=== PATIENT | male | born 1980 | race Caucasian/White ===

== ENCOUNTER 2021-05-12 10:18 | Emergency (ER) | payer BC, SELFPAY ==
[2021-05-12 10:19] VITALS: BP 159/120; PULSE 95; RESP 18; TEMP 36.6; O2SAT 99; BMI 36.3
[2021-05-12 10:21] VITALS: BP 159/120; PULSE 95; RESP 18; TEMP 36.6; O2SAT 99
--- NOTE | 2021-05-12 10:59 | CT_ITS ---
STUDY: CT SOFT TISSUE NECK WITH CONTRAST REASON FOR EXAM: Male, 40 years old. right lower jaw dental infection RADIATION DOSAGE (If Supplied By Facility): CTDIvol = ( 19.48 ) mGy, DLP = ( 730.13 ) mGycm TECHNIQUE: The patient was scanned in a multi-detector CT scanner. High resolution transaxial imaging was performed following intravenous administration of IV 75mL Isovue-370. Sagittal and coronal images were reconstructed. Individualized dose optimization techniques were used for this CT. COMPARISON: None. FINDINGS: Normal bilateral parotid glands. 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 Normal bilateral parapharyngeal spaces. Normal bilateral carotid spaces. There is right lower periodontal soft tissue swelling and edema mild edema and inflammation of the overlying subcutaneous tissue. There is no focal collection or discrete abscess. There is no definite osteomyelitis, but suspected involved tooth is the right lower second bicuspid and/or first molar. Normal visualized nasopharynx. Normal retropharyngeal space. Normal perivertebral space. Normal visualized bilateral faucial tonsils. The visualized tongue, tongue base and oropharynx are normal. There is mild right level 1A adenopathy measuring up to 1.2 cm. Mild right submandibular adenopathy up to 1 cm. There is no demonstrated solid or cystic mass lesion. There is no abnormal contrast enhancement. Normal epiglottis, bilateral vallecula and hypopharynx. The pre-epiglottic and paraglottic adipose spaces are normal. Normal visualized bilateral piriform sinuses, aryepiglottic folds, vocal cords, and arytenoid-cricoid articulations. Normal subglottic trachea. Normal bilateral lobes of the thyroid gland. Normal visualized pulmonary apices. Normal visualized paranasal sinuses. Normal visualized cervical spine. CT/Soft Tissue Neck WITH Contrast IMPRESSION: There is right lower periodontal soft tissue swelling and edema and mild edema and inflammation of the overlying subcutaneous tissue. There is no focal collection or discrete abscess. There is no definite osteomyelitis, but suspected involved tooth is the right lower second bicuspid and/or first molar. Dental consult is recommended. Mild right cervical and submandibular adenopathy. Electronically Signed: Solange Lynn MD at 12:30 EDT Tel , Service support ,
[2021-05-12 11:24] LABS: Absolute Lymphocyte Count 1.51 X10^3/uL (0.83-4.51); Absolute Neutrophil Count 8.9 X10^3/uL (2.0-7.7); Basophil# 0.04 X10^3/uL; Basophil% 0.4 % (0-1); Eosinophils% 0.9 % (0-5); Hematocrit 44.1 % (40-54); Hemoglobin 14.6 g/dL (13.0-16.5); Lymphocyte # 1.51 X10^3/ul (0.83-4.51); Lymphocyte % 13.7 % (19-41); Mean Corp Hgb Conc 33.1 g/dL (32-36); Mean Corpuscular Hgb 28.6 pg (27.0-32.0); Mean Corpuscular Volume 86.5 fL (80-94); Mean Platelet Vol. 10.1 fl (6.2-12.0); Monocyte# 0.42 X10^3/uL; Monocyte% 3.8 % (0-10); NRBC Flagged by Analyzer 0 % (0-5); Neutrophil # 8.92 X10^3/uL (2.7-7.7); Neutrophil % 80.7 % (47-70); Platelet Count 242 K/mm3 (150-450); RBC Distribution Width CV 13.4 % (11.6-14.6)
[2021-05-12 11:37] LABS: Anion Gap 5 (5-15); BUN 12 mg/dL (7-18); BUN/Creat Ratio 16.1 RATIO (10-20); Chloride 109 mmol/L (98-107); Creatinine, Serum 0.75 mg/dL (0.70-1.30); EST Glomerular Filtration Rate 123 mL/min (>60); Est Glom Filt Rate - Afr Amer 149 mL/min (>60); Estimated Creatinine Clearance 162.35 ml/min; Glucose 163 mg/dL (74-106); Potassium 3.8 mmol/L (3.5-5.1); Sodium Level 138 mmol/L (136-145)
--- NOTE | 2021-05-12 14:26 | ED.VIS.DENTA ---
HPI History of Present Illness Chief Complaint: Dental Informant: patient Onset/Context/Timing Onset: Days Context: Gradual Onset Timing: Continuous Current Severity: Mild Maximum Severity: Mild Associated Symptoms Assocated Symptom - Dental: jaw swelling, face swelling and cold sensitivity; Negative for fever Narrative Narrative: 40-year-old male complaining of right lower jaw dental abscess or facial swelling has been going on since Wednesday increased on Wednesday. He was treated in urgent care and started on Augmentin on Wednesday. That is recently been changed by a dentist to clindamycin 4 times a day. He thought the swelling was mildly worse today and he wanted to be reevaluated in the emergency department. He denies any trouble swallowing or breathing. Prior similar symptoms: No Recent Illness/Hospitalization: No PFSH PFSH Medical History no medical history Home Medications pantoprazole 40 mg PO DAILY 06/05/14 [History Last Taken Unknown] naproxen sodium [Naprelan] 375 mg PO DAILY 04/12/15 [History Last Taken Unknown] bupropion HCl 150 mg PO BID 05/08/16 [History Last Taken Unknown] clindamycin HCl 300 mg PO 4X/DAY #80 capsule 02/09/17 [Rx Last Taken Unknown] naproxen 500 mg PO BID PRN #20 tab 02/09/17 [Rx Last Taken Unknown] Allergy/AdvReac Type Severity Reaction Status Date / Time sulfamethoxazole AdvReac Rash Verified 05/12/21 10:25 [From Bactrim] trimethoprim [From Bactrim] AdvReac Rash Verified 05/12/21 10:25 Social History Smoking Status: Current every day smoker tobacco type: cigarettes ROS ROS ED ROS Narrative Denies recent illness. Review of Systems ROS Unobtainable: Denies due to encephalopathy Constitutional Constitutional ED: Denies fever(s) or subjective Eyes Eyes: Denies change in vision ENT ENT ED: Denies ear pain or rhinorrhea Cardiovascular Cardiovascular: Denies chest pain Respiratory/Chest Respiratory/Chest: Denies cough or dyspnea Gastrointestinal Gastrointestinal: Denies abdominal pain Genitourinary Genitourinary ED: Denies dysuria Musculoskeletal Musculoskeletal: Denies myalgias Integumentary Denies rash Neurologic Neurologic: Denies headache(s) Psychiatric Psychiatric: Denies depression Endocrine Endocrinology: Denies polyuria Hematologic/Lymphatic Hematologic/Lymphatic: Denies easy bruising Allergic/Immunologic Allergic/Immunologic ED: Denies urticaria EXAM Physical Exam Narrative Exam Narrative: 40-year-old male no acute distress vital signs stable afebrile initial blood pressure elevated 139/120. Does not look septic or toxic. No distress. H EENT exam posterior pharynx unremarkable. No trouble swallowing or breathing. No drooling. Floor of his mouth unremarkable. Right cheek is swollen as is the right jaw. No drainable abscess. Firm and tender to the touch. Also goes in the right side of his neck. Floor of his mouth is unremarkable. He has no stridor. Neck tender on the right mild lymphadenopathy. Trachea midline. Lungs clear to auscultation. Heart regular rhythm no murmur. Abdomen soft nontender. Moving all 4 extremities. Neurologically awake alert. Const Vital Signs: 05/12/21 10:19 05/12/21 10:21 Temperature 98 F 98 F Temperature Source Temporal Temporal Pulse Rate 95 95 Respiratory Rate 18 18 Blood Pressure 159/120 H 159/120 H Blood Pressure Mean 133 133 Pulse Ox 99 99 Oxygen Delivery Method Room Air Room Air Positive well nourished and well developed; Negative for obese, cachectic, contractures or unkempt General Appearance ED: well developed and NAD; Negative for unkempt, cachectic or contractures Nutritional Appearance: Negative for cachectic or obese HEENT HEENT Narrative: Swelling right side of his face right lower jaw and right lateral neck. No trouble swallowing or breathing. tenderness; Negative for trauma Eyes PERRL and EOMs intact bilaterally Neck No no lymphadenopathy, supple and no JVD Neck Narrative: Mild right lateral neck swelling just below the jaw. General: tenderness Lymph Lymphatic: lymphadenopathy Chest Wall inspection of chest normal and palpation of chest normal Resp normal respiratory effort, no retractions and clear to auscultation bilaterally Effort and Inspection: Negative for other Cardio regular rate, regular rhythm, S1 normal heart sound, S2 normal heart sound and no murmurs GI normal to inspection, nondistended, normoactive bowel sounds, non-tender, non-distended and no masses Palpation: soft Back/Spine no CVA tenderness General Back: Negative for CVA tenderness Thoracic Spine / Upper Back: Negative for thoracic spinal tenderness or paraspinal muscle tenderness Extremity normal to inspection Neuro oriented x3, CN's II-XII intact bilaterally, moves all extremities and no focal motor deficits Sensorium / Orientation: alert, oriented to person, oriented to place and oriented to time; Negative for orientation impaired Psych mental status grossly normal Appearance: Negative for unkempt Mood & Affect: Negative for depressed or tearful Skin no rashes or lesions noted and no wounds MDM MDM MDM Narrative Medical decision making narrative: Gentleman with generalized dental infection. On clindamycin. Sent in for further evaluation. No trauma no swelling of breathing. Repeat exam at 2:30 PM unchanged. Patient was given a dose of IV clindamycin emergency department. I am comfortable with him being discharged home. Outpatient follow-up with his dentist. Return if worse. Continue his current antibiotics. Tylenol Motrin for pain. The CAT scan did not show any signs of a drainable abscess. Patient I went over his test results. He is comfortable with outpatient follow-up. Lab Data Attestation: I reviewed the patient's lab results. Lab results narrative: CBC shows a white count of 11. Hemoglobin 14. No bands. Electrolytes unremarkable gap of 5 normal creatinine. Glucose 163. Labs: Laboratory Results - last 24 hr 05/12/21 05/12/21 11:15 11:15 WBC 11.0 RBC 5.10 Hgb 14.6 Hct 44.1 MCV 86.5 MCH 28.6 MCHC 33.1 RDW Std Deviation 43.0 RDW Coeff of Luther 13.4 Plt Count 242 MPV 10.1 Immature Gran % (Auto) 0.500 Neut % (Auto) 80.7 H Lymph % (Auto) 13.7 L [place] % (Auto) 3.8 Eos % (Auto) 0.9 Baso % (Auto) 0.4 Absolute Neuts (auto) 8.9 H Absolute Lymphs (auto) 1.51 Nucleated RBC % 0 Sodium 138 Potassium 3.8 Chloride 109 H Carbon Dioxide 24.0 Anion Gap 5 BUN 12 Creatinine 0.75 Estim Creat Clear Calc 162.35 Est GFR (MDRD) Af Amer 149 Est GFR (MDRD) Non-Af 123 BUN/Creatinine Ratio 16.1 Glucose 163 H Calcium 9.0 Radiography Diagnostic Testing: Clinical Impression(s) from Imaging Studies Soft Tissue Neck CT 05/12/21 10:59 IMPRESSION: There is right lower periodontal soft tissue swelling and edema and mild edema and inflammation of the overlying subcutaneous tissue. There is no focal collection or discrete abscess. There is no definite osteomyelitis, but suspected involved tooth is the right lower second bicuspid and/or first molar. Dental consult is recommended. Mild right cervical and submandibular adenopathy. Electronically Signed: Solange Lynn MD at 12:30 EDT Tel , Service support , Discharge Plan Triage Chief Complaint: Dental ED Provider: Winston Mccarty Dx/Rx/DC Orders Clinical Impression: Dental infection Instructions: ED Dental Abscess Prescriptions: No Action pantoprazole 40 MG tablet 40 mg PO DAILY RF: 0 naproxen sodium [Naprelan CR] 375 MG Tbmp.24hr 375 mg PO DAILY RF: 0 bupropion HCl 150 MG Tablet.Sa 150 mg PO BID RF: 0 clindamycin HCl 150 MG capsule 300 mg PO 4X/DAY Qty: 80 RF: 0 naproxen 500 MG tablet 500 mg PO BID PRN Qty: 20 RF: 0 Primary Care Provider: Juvenal Saleem Referrals: Juvenal Saleem MD [Primary Care Provider] - As Needed Activity Restrictions/Additional Instructions: Warm salt water gargling. Tylenol and Motrin for pain. Ice to your jaw. Finish your current antibiotic to clindamycin. Follow-up with your dentist as scheduled. Return if trouble swallowing or breathing. Disposition Disposition: Home, Self Care
== END 2021-05-12 14:50 | disposition home or self-care (01) ==
PROVIDERS: Emergency Provider Emergency Medicine; PCP Family Medicine
DX: K04.7 Periapical abscess without sinus (principal); F17.210 Nicotine dependence, cigarettes, uncomplicated
CPT/HCPCS: 70491; 80048; 85025; 96365; 96366; 99282; Q9967; A4216

== ENCOUNTER 2024-01-12 11:38 | Emergency (ER) | payer BC, SELFPAY ==
[2024-01-12 11:39] VITALS: BP 125/85; PULSE 112; RESP 18; TEMP 36.2; O2SAT 100; BMI 35.1
[2024-01-12 12:17] LABS: Absolute Lymphocyte Count 0.59 X10^3/uL (0.83-4.51); Absolute Neutrophil Count 17.3 X10^3/uL (2.0-7.7); Basophil% 0.5 % (0-1); Eosinophil# 0.01 X10^3/uL; Eosinophils% 0.1 % (0-5); Hematocrit 39.7 % (40-54); Hemoglobin 13.2 g/dL (13.0-16.5); Lymphocyte # 0.59 X10^3/ul (0.83-4.51); Mean Corp Hgb Conc 33.2 g/dL (32-36); Mean Corpuscular Hgb 28.6 pg (27.0-32.0); Mean Corpuscular Volume 86.1 fL (80-94); Mean Platelet Vol. 10.8 fl (6.2-12.0); Monocyte# 1.51 X10^3/uL; Monocyte% 7.7 % (0-10); NRBC Flagged by Analyzer 0 % (0-5); Neutrophil # 17.29 X10^3/uL (2.7-7.7); POSITIVE DIFFERENTIAL YES; Platelet Count 175 K/mm3 (150-450); RBC Distribution Width CV 13.6 % (11.6-14.6); RBC Distribution Width SD 42.7 fl (35.1-43.9); Red Blood Count 4.61 M/mm3 (4.6-6.2); White Blood Count 19.6 K/mm3 (4.4-11.0)
[2024-01-12 12:19] VITALS: BP 125/85; PULSE 112; RESP 18; TEMP 36.2; O2SAT 100
[2024-01-12 12:23] LABS: Differential Indicated SCAN CRITERIA MET
[2024-01-12 12:33] LABS: Anion Gap 8 (5-15); BUN 15 mg/dL (7-18); BUN/Creat Ratio 20.2 RATIO (10-20); Chloride 105 mmol/L (98-107); Creatinine, Serum 0.74 mg/dL (0.70-1.30); EST Glomerular Filtration Rate 123 mL/min (>60); Est Glom Filt Rate - Afr Amer 148 mL/min (>60); Estimated Creatinine Clearance 192.11 ml/min; Glucose 139 mg/dL (74-106); Potassium 3.6 mmol/L (3.5-5.1); Sodium Level 135 mmol/L (136-145)
--- NOTE | 2024-01-12 13:06 | CT_ITS ---
STUDY: CT ABDOMEN AND PELVIS WITHOUT CONTRAST REASON FOR EXAM: Male, 43 years old. right flank pain RADIATION DOSAGE (If Supplied By Facility): CTDIvol = ( 22.62 ) mGy, DLP = ( 1345.03 ) mGycm TECHNIQUE: Transaxial images were obtained from the dome of the diaphragm to the symphysis pubis without oral contrast, and without intravenous contrast. Sagittal and coronal images were reconstructed. Individualized dose optimization techniques were used for this CT. COMPARISON: None. FINDINGS: Some dependent bibasilar atelectasis. The visualized portions of the heart are within normal limits. There is decreased attenuation of the liver consistent with steatosis. The gallbladder is contracted. Normal spleen. Normal pancreas. Normal bilateral adrenal glands. Normal right kidney. Normal left kidney. Normal visualized stomach. Normal small intestine. There are multiple colonic diverticula consistent with diverticulosis. Diffuse wall thickening of the proximal sigmoid colon possibly consistent with diverticulitis. No stranding of the surrounding fat to suggest transmural inflammation. No loculated fluid collection to suggest abscess. No pneumoperitoneum to suggest perforation. The appendix is visualized and appears normal. Normal abdominal aorta. Normal inferior vena cava. Normal retroperitoneum. Normal urinary bladder. Normal abdominal wall. Normal osseous structures. CT/Abdomen/Pelvis without Cont IMPRESSION: 1. No renal or ureteral stone. 2. Possible sigmoid diverticulitis without abscess or perforation. Electronically Signed: Indra Nguyen MD at 14:10 EDT ,
--- NOTE | 2024-01-12 13:07 | EDS_ITS ---
HPI History of Present Illness Chief Complaint: Flank Pain Informant: patient Onset/Context/Timing Onset: Days Narrative Narrative: Patient presents with 4-day history of right flank pain. He initially developed right lower back pain on Wednesday. By Wednesday it had moved up to the right lateral abdomen. He has had subjective fevers and chills. Has had nausea but no vomiting. He has had increased thirst and is urinating frequently but has no dysuria or hematuria. [facility] Medical History (Updated 01/12/24 @ 15:[address] Elis Melissa MD) Depression GERD (gastroesophageal reflux disease) Hypertension Peripheral vascular disease of extremity Lymphedema of both lower extremities History of pulmonary embolism Home Medications ?Medication ?Instructions ?Recorded ?Last Taken ?Type pantoprazole 40 mg tablet,delayed 40 mg PO DAILY 06/05/14 Unknown History release naproxen sodium 375 mg 375 mg PO DAILY 04/12/15 Unknown History tablet,extended release 24 hr mphase (Naprelan CR) bupropion HCl 150 mg tablet,12 hr 150 mg PO BID 05/08/16 Unknown History sustained-release clindamycin HCl 150 mg capsule 300 mg (2 x 150 mg) PO 4X/DAY ##80 02/09/17 Unknown Rx naproxen 500 mg tablet 500 mg PO BID PRN #20 tabs 02/09/17 Unknown Rx ciprofloxacin HCl 500 mg tablet 500 mg PO BID #20 tabs 01/12/24 Unknown Rx (Cipro) ibuprofen 800 mg tablet 800 mg PO Q8H PRN pain #20 tabs 01/12/24 Unknown Rx metronidazole 500 mg tablet 500 mg PO Q8H 10 days #30 tabs 01/12/24 Unknown Rx Allergy/AdvReac Type Severity Reaction Status Date / Time sulfamethoxazole (From AdvReac Rash Verified 01/12/24 11:39 Bactrim) trimethoprim (From Bactrim) AdvReac Rash Verified 01/12/24 11:39 Social History Smoking Status: Current every day smoker tobacco type: cigarettes ROS ROS ED Constitutional Constitutional ED: Reports chills, fever(s) and subjective Eyes Eyes: Denies change in vision or discharge from eye(s) ENT ENT ED: Denies discharge from eye(s) or sore throat Cardiovascular Cardiovascular: Denies chest pain or palpitations Respiratory/Chest Respiratory/Chest: Denies cough or dyspnea Gastrointestinal Gastrointestinal: Reports abdominal pain and nausea; Denies diarrhea or vomiting Genitourinary Genitourinary ED: Reports urinary frequency; Denies difficulty urinating, dysuria or hematuria Musculoskeletal Musculoskeletal: Reports back pain; Denies extremity pain Integumentary Denies Abrasions or rash Neurologic Neurologic: Denies headache(s) or weakness Psychiatric Psychiatric: Denies anxiety or depression Allergic/Immunologic Allergic/Immunologic ED: Denies lip swelling or urticaria EXAM Physical Exam Const Vital Signs: 01/12/24 11:39 01/12/24 12:19 01/12/24 13:38 Temperature 97.1 F L 97.1 F L Temperature Source Temporal Temporal Pulse Rate 112 H 112 H 94 Respiratory Rate 18 18 16 Blood Pressure 125/85 H 125/85 H 113/77 Blood Pressure Mean 98 98 89 Pulse Ox 100 100 98 Oxygen Delivery Method Room Air Room Air Room Air Positive well nourished and well developed General Appearance ED: well developed HEENT Reports moist mucous membranes Eyes EOMs intact bilaterally Chest Wall inspection of chest normal and palpation of chest normal Resp normal respiratory effort and clear to auscultation bilaterally Cardio regular rate and regular rhythm GI GI Narrative: Abdomen soft with no focal tenderness to palpation. Patient allows deep palpation of the right upper quadrant without difficulty. Back/Spine no CVA tenderness Extremity normal to inspection Neuro oriented x3 and no sensory deficits noted Motor Exam: strength 5/5 throughout Psych mental status grossly normal Skin no rashes or lesions noted MDM MDM MDM Narrative Medical decision making narrative: IV line established. Patient given morphine, Zofran, Toradol, and IV fluids. Labwork obtained to evaluate for leukocytosis, anemia, and electrolyte derangement. Urinalysis obtained to evaluate for infection/hematuria. CT flank obtained to evaluate for kidney stone, cholecystitis, appendicitis, colitis. History & Record Review Discussion w/independent historian: Patient and Family Additional record(s) reviewed:: Prior labs Lab Data Attestation: I reviewed the patient's lab results. Labs: Laboratory Results - last 24 hr 01/12/24 01/12/24 11:58 13:47 WBC 19.6 H RBC 4.61 Hgb 13.2 Hct 39.7 L MCV 86.1 MCH 28.6 MCHC 33.2 RDW Std Deviation 42.7 RDW Coeff of Luther 13.6 Plt Count 175 MPV 10.8 Immature Gran % (Auto) 0.700 Neut % (Auto) 88.0 H Lymph % (Auto) 3.0 L [place] % (Auto) 7.7 Eos % (Auto) 0.1 Baso % (Auto) 0.5 Absolute Neuts (auto) 17.3 H Absolute Lymphs (auto) 0.59 L Nucleated RBC % 0 Differential Comment COMMENT Diff Path Review May foll Sodium 135 L Potassium 3.6 Chloride 105 Carbon Dioxide 22.0 Anion Gap 8 BUN 15 Creatinine 0.74 Estim Creat Clear Calc 192.11 Est GFR (MDRD) Af Amer 148 Est GFR (MDRD) Non-Af 123 BUN/Creatinine Ratio 20.2 H Glucose 139 H Calcium 9.0 Total Bilirubin 1.30 H Direct Bilirubin 0.80 H AST 81 H ALT 136 H Alkaline Phosphatase 148 H Total Protein 7.4 Albumin 2.6 L Globulin 4.8 H Lipase 16 Urine Color [place] Urine Clarity Clear Urine pH 6.0 Ur Specific [place] 1.015 Urine Protein 100 H Urine Glucose (UA) Normal Urine Ketones 15 H Urine Occult Blood 25 H Urine Nitrite Positive H Urine Bilirubin 3 H Urine Urobilinogen 12 H Ur Leukocyte Esterase 100 H Urine RBC 0 SEEN Urine WBC 0-5 SEEN Ur Squamous Epith Cells 0 SEEN Urine Bacteria 0 SEEN Urine Mucus 0 SEEN Radiography Diagnostic Testing: Clinical Impression(s) from Imaging Studies Abdomen/Pelvis CT 01/12/24 13:06 IMPRESSION: 1. No renal or ureteral stone. 2. Possible sigmoid diverticulitis without abscess or perforation. Electronically Signed: Indra Nguyen MD at 14:10 EDT , Treatment and Re-Evaluation :: CBC was elevated white count 19.6 with 88% neutrophils. Hemoglobin is normal at 13.2. Chemistry studies reveal normal potassium at 3.6 and normal renal function with a BUN of 15 and a creatinine of 0.74. Glucose is 139. Total bilirubin is 1.3 and direct bilirubin is 0.80. AST is 81, ALT is 136, and alk phos is 148. Lipase is 16. Urinalysis reveals positive nitrites with 0-5 white cells. 15 ketones are noted. He does have 25 occult blood and [address] scan of the abdomen and pelvis reveals no renal or ureteral stone. Possible sigmoid diverticulitis without abscess or perforation noted. Gallbladder is contracted with no surrounding inflammation. On repeat evaluation the patient is sleeping comfortably. He easily awakens. Patient states that he does feel improved. He continues to allow deep palpation to the right upper quadrant without pain. I do not think ultrasound imaging will be beneficial given the contracted gallbladder and no inflammation on CT. Patient has pain to the lateral abdominal wall. He does not feel short of breath or have cough. He is not hypoxic, tachypneic, or significantly tachycardic. His heart rate is now actually improved into the 90s. Patient does have nitrites in his urine along with possible sigmoid diverticulitis. This would explain some of the back pain that he has been having but not the right lateral abdominal wall pain. Patient be treated with Cipro and Flagyl, first dose is given here. We discussed that his LFTs are slightly elevated will need follow-up. If he worsens in any way he is to return for repeat evaluation. He is comfortable with the plan. Discharge Plan Triage Chief Complaint: Flank Pain ED Provider: Elis Melissa Dx/Rx/DC Orders Clinical Impression: Abdominal pain, Diverticulitis Instructions: ED Diverticulitis, ED Flank Pain, Uncertain Cause Prescriptions: New ciprofloxacin HCl [Cipro] 500 mg tablet 500 mg PO BID Qty: 20 0RF metronidazole 500 mg tablet 500 mg PO Q8H 10 Days Qty: 30 0RF ibuprofen 800 mg tablet 800 mg PO Q8H PRN (Reason: pain) Qty: 20 0RF No Action pantoprazole 40 MG tablet 40 mg PO DAILY Patient Comments: acid reflux naproxen sodium [Naprelan CR] 375 MG tablet, ER multiphase 24 hr 375 mg PO DAILY bupropion HCl 150 MG tablet sustained-release 12 hr 150 mg PO BID clindamycin HCl 150 MG capsule 300 mg PO 4X/DAY Qty: 80 0RF naproxen 500 MG tablet 500 mg PO BID PRN Qty: 20 0RF Primary Care Provider: Juvenal Saleem Referrals: Juvenal Saleem MD [Primary Care Provider] - 5-7 Days Print Language: Serbian Disposition Disposition: Home, Self Care
[2024-01-12] MEDS: Ondansetron 4 MG/2 ML Vial IV (13:17)
[2024-01-12] MEDS: 0.9% Normal Saline (1000mL) 1,000 ML 1000 ML IV (13:17)
[2024-01-12] MEDS: Ketorolac 15 MG/ML Vial IV (13:18)
[2024-01-12 13:38] VITALS: BP 113/77; PULSE 94; RESP 16; O2SAT 98
[2024-01-12 13:58] LABS: Bacteria 0 SEEN /hpf (None Seen); Mucous, Urine 0 SEEN /hpf (<or=2+); Red Blood Cells-Urine 0 SEEN /hpf (0-5); Squamous Epithelial Cells - UA 0 SEEN /hpf (0-5)
[2024-01-12 14:01] LABS: AST(SGOT) 81 U/L (15-37); Alanine Aminotransfer ALT/SGPT 136 U/L (16-61); Albumin, Serum 2.6 g/dL (3.2-5.0); Alkaline Phosphatase 148 U/L (45-117); Globulin 4.8 g/dL (2.2-4.2); Lipase 16 U/L (13-75); Protein, Total 7.4 g/dL (6.4-8.2)
[2024-01-12 14:03] LABS: Color, Urine Amber (Yellow); Glucose, Dipstick Normal (Normal); Ketone-Dipstick 15 mg/dl (Negative); Leukocyte Esterase-Dipstick 100 /ul (Negative); Nitrite-Dipstick Positive (Negative); Occult Blood-Urine 25 /ul (Negative); Protein-Dipstick 100 mg/dl (Negative); Specific Gravity, Urine 1.015 (1.002-1.030); Urine Clarity Clear (Clear); Urine Urobilinogen 12 mg/dl (Normal)
[2024-01-12 14:16] LABS: Urine Bilirubin Dipstick 3 mg/dL (Negative)
[2024-01-12 14:17] LABS: White Blood Cells 0-5 SEEN /hpf (0-5)
[2024-01-12 15:00] VITALS: BP 133/96; PULSE 94; RESP 16; O2SAT 98
[2024-01-12] MEDS: Ciprofloxacin 500 MG Tablet PO (15:41)
[2024-01-12] MEDS: metroNIDAZOLE 500 MG Tablet PO (15:41)
[2024-01-12 15:42] VITALS: BP 133/96; PULSE 98; RESP 18; TEMP 36.8; O2SAT 98
[2024-01-14 09:28] LABS: Pathologist Review Reviewed
== END 2024-01-12 15:48 | disposition home or self-care (01) ==
PROVIDERS: Emergency Provider Emergency Medicine; PCP Family Medicine; Visit Provider Emergency Medicine
DX: K57.92 Diverticulitis of intestine, part unspecified, without perforation or abscess without bleeding (principal); F17.210 Nicotine dependence, cigarettes, uncomplicated; Z86.711 Personal history of pulmonary embolism
CPT/HCPCS: 74176; 80048; 80076; 81001; 83690; 85025; 96361; 96374; 96375; 96376; 99284; J7030; A4216; J2405

== ENCOUNTER 2024-01-19 15:17 | Inpatient (IN) | payer BC, SELFPAY ==
[2024-01-19] VITALS (9 sets, daily range): BP systolic 134–160; BP diastolic 91–114; PULSE 80–98; RESP 14–18; TEMP 36.2–37.4; O2SAT 95–98; BMI 34.8; BMI 35.2
[2024-01-19 16:03] LABS: Absolute Lymphocyte Count 1.76 X10^3/uL (0.83-4.51); Absolute Neutrophil Count 14.2 X10^3/uL (2.0-7.7); Basophil# 0.08 X10^3/uL; Basophil% 0.5 % (0-1); Eosinophil# 0.01 X10^3/uL; Eosinophils% 0.1 % (0-5); Hematocrit 39.1 % (40-54); Hemoglobin 13.2 g/dL (13.0-16.5); Lymphocyte # 1.76 X10^3/ul (0.83-4.51); Mean Corp Hgb Conc 33.8 g/dL (32-36); Mean Corpuscular Hgb 28.7 pg (27.0-32.0); Mean Platelet Vol. 9.4 fl (6.2-12.0); Monocyte# 0.74 X10^3/uL; Monocyte% 4.2 % (0-10); NRBC Flagged by Analyzer 0 % (0-5); Neutrophil # 14.18 X10^3/uL (2.7-7.7); Neutrophil % 80.7 % (47-70); Platelet Count 411 K/mm3 (150-450); RBC Distribution Width CV 14.6 % (11.6-14.6); RBC Distribution Width SD 44.5 fl (35.1-43.9); White Blood Count 17.6 K/mm3 (4.4-11.0)
[2024-01-19 16:21] LABS: ALB/GLOB Ratio 0.4 RATIO (0.9-2.4); AST(SGOT) 38 U/L (15-37); Alanine Aminotransfer ALT/SGPT 52 U/L (16-61); Albumin, Serum 2.2 g/dL (3.2-5.0); Alkaline Phosphatase 186 U/L (45-117); Anion Gap 7 (5-15); BUN 14 mg/dL (7-18); BUN/Creat Ratio 22.3 RATIO (10-20); Calcium,Total 8.1 mg/dL (8.5-10.1); Chloride 105 mmol/L (98-107); Creatinine, Serum 0.63 mg/dL (0.70-1.30); EST Glomerular Filtration Rate 149 mL/min (>60); Est Glom Filt Rate - Afr Amer 180 mL/min (>60); Estimated Creatinine Clearance 230.61 ml/min; Globulin 4.9 g/dL (2.2-4.2); Glucose 94 mg/dL (74-106); Potassium 3.5 mmol/L (3.5-5.1); Protein, Total 7.1 g/dL (6.4-8.2); Sodium Level 135 mmol/L (136-145)
[2024-01-19 17:22] LABS: Color, Urine Amber (Yellow); Glucose, Dipstick Normal (Normal); Ketone-Dipstick 5 mg/dl (Negative); Leukocyte Esterase-Dipstick 100 /ul (Negative); Nitrite-Dipstick Positive (Negative); Occult Blood-Urine 10 /ul (Negative); Protein-Dipstick 30 mg/dl (Negative); Urine Clarity Clear (Clear); Urine Urobilinogen 8 mg/dl (Normal)
[2024-01-19 17:24] LABS: Urine Bilirubin Dipstick 1 mg/dL (Negative)
[2024-01-19 17:36] LABS: Bacteria 2+ /hpf (None Seen); Mucous, Urine 3+ /hpf (<or=2+); Red Blood Cells-Urine 0-5 SEEN /hpf (0-5); White Blood Cells 0-5 SEEN /hpf (0-5)
[2024-01-19 17:37] LABS: Renal Epithelial Cells 0-5 SEEN /hpf (0-5); Squamous Epithelial Cells - UA 0-5 SEEN /hpf (0-5)
--- NOTE | 2024-01-19 17:37 | CT_ITS ---
STUDY: CT ABDOMEN AND PELVIS WITH CONTRAST REASON FOR EXAM: Male, 43 years old. Abdominal pain RADIATION DOSAGE (If Supplied By Facility): CTDIvol = ( 15.48 ) mGy, DLP = ( 1456.62 ) mGycm TECHNIQUE: Transaxial images were obtained from the dome of the diaphragm to the symphysis pubis without oral contrast. IV 100mL Isovue-370 was administered. Sagittal and coronal images were reconstructed. Individualized dose optimization techniques were used for this CT. COMPARISON: January 12, 2024. FINDINGS: There is lower lung atelectasis The visualized portions of the heart are within normal limits. There is hepatomegaly with diffuse hepatic enlargement. There are multiple, at least 20, enhancing hypodense masses in the liver that appear new compared to the recent prior exam. The largest, in the left lobe, measures 11.8 cm. Normal gallbladder and extrahepatic biliary system. Normal spleen. Normal pancreas. Normal bilateral adrenal glands. Normal right kidney. Normal left kidney. Normal visualized stomach. Normal small intestine. There are multiple colonic diverticula consistent with diverticulosis. There is wall thickening of the sigmoid region with diverticulitis versus mass. The appendix is visualized and appears normal. Normal abdominal aorta. Normal inferior vena cava. Normal retroperitoneum. Normal urinary bladder. There is mild free fluid in the pelvis. Normal abdominal wall. There is intramedullary amish in the shaft of the left femur CT/Abdomen/Pelvis W IV Cont ONLY IMPRESSION: Multiple masses in the liver appear new compared to recent exam suggesting multiple abscesses versus metastatic disease. Colonic diverticulosis. Wall thickening of the sigmoid region with diverticulitis versus mass. Endoscopic correlation recommended. Mild free fluid in the pelvis. Results discussed with Dr. Mccarty. N.B. : The above Results were Read Back by Marcus Beard MD to Winston Mccarty MD, and understanding confirmed on 01/19/2024 18:24:24 (ET). Electronically Signed: Marcus Beard MD at 18:27 EDT ,
--- NOTE | 2024-01-19 18:13 | RAD_ITS ---
STUDY: X-RAY CHEST REASON FOR EXAM: Male, 43 years old. Dyspnea TECHNIQUE: Single AP portable view of the chest. COMPARISON: December 20, 2013 FINDINGS: There is left lower lung scarring or atelectasis. There is no demonstrated pleural abnormality. Normal size heart. Normal mediastinum and bryant. Normal visualized pulmonary arteries. Normal visualized aortic arch and descending thoracic aorta. Normal visualized thoracic spine. Normal visualized ribs, clavicles, and shoulders. There is no demonstrated abnormality of the visualized soft tissue structures of the upper abdomen. RAD/Chest 1 View (Portable) IMPRESSION: Left lower lung scarring or atelectasis. Electronically Signed: Marcus Beard MD at 19:02 EDT ,
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
--- NOTE | 2024-01-19 18:28 | EKG12_ITS ---
Test Reason : SOB Blood Pressure : / mmHG Vent. Rate : 081 BPM Atrial Rate : 081 BPM P-R Int : 154 ms QRS Dur : 102 ms QT Int : 404 ms P-R-T Axes : -06 073 -07 degrees QTc Int : 469 ms Normal sinus rhythm Abnormal QRS-T angle, consider primary T wave abnormality Abnormal ECG Confirmed by MADDI HDEZ, HOLLI ([id number]), mapping editor HUGO COTTO ([id number]) on 01/26/2024 10:32:25 A M Referred By: MARYANNE Confirmed By:DIONNA LINDA MD
--- NOTE | 2024-01-19 18:35 | HP.PCM.HOS_ITS ---
HPI - General General Date of Admission: 01/19/24 Date of Service: 01/19/24 Chief Complaint: 1 week of flulike symptoms, right flank pain for 1 week HPI Narrative SHEYLA KEENAN, is a 43 M came to ED for flank pain worsening. Prior to that he came to ED about 1 week ago and was found to have sigmoid diverticulitis with leukocytosis 19.6 thousand without abscess or perforation therefore was sent home on Cipro and Flagyl. Patient stated he did not feel good still having drenching sweats, fever with chills and right flank pain. He describes right flank pain constant 8-10/10 intensity from right lumbar area moving anteriorly to right hypochondrium. He did not check his temperature but he said that he tested negative for COVID at home. Patient has significant leukocytosis In ED his vitals was in normal limit. No hypotension or tachycardia. CT abdomen with IV contrast individually reviewed and shows multiple masses in the liver with ring-enhancing lesion the biggest 1 in the left lobe. Wall thickening of sigmoid colon suggestive of diverticulitis versus mass. Patient was also evaluated by surgeon and recommended transfer to tertiary care for IR procedure. As patient care does not have beds therefore patient is admitted for interim management with IV antibiotics ON LICENSE OF [facility] Medical History Depression GERD (gastroesophageal reflux disease) Hypertension Peripheral vascular disease of extremity Lymphedema of both lower extremities History of pulmonary embolism Home Medications ?Medication ?Instructions ?Recorded ?Last Taken ?Type pantoprazole 40 mg tablet,delayed 40 mg PO DAILY 06/05/14 Unknown History release naproxen sodium 375 mg 375 mg PO DAILY 04/12/15 Unknown History tablet,extended release 24 hr mphase (Naprelan CR) bupropion HCl 150 mg tablet,12 hr 150 mg PO BID 05/08/16 Unknown History sustained-release clindamycin HCl 150 mg capsule 300 mg (2 x 150 mg) PO 4X/DAY ##80 02/09/17 Unknown Rx naproxen 500 mg tablet 500 mg PO BID PRN #20 tabs 02/09/17 Unknown Rx ciprofloxacin HCl 500 mg tablet 500 mg PO BID #20 tabs 01/12/24 Unknown Rx (Cipro) ibuprofen 800 mg tablet 800 mg PO Q8H PRN pain #20 tabs 01/12/24 Unknown Rx metronidazole 500 mg tablet 500 mg PO Q8H 10 days #30 tabs 01/12/24 Unknown Rx Allergy/AdvReac Type Severity Reaction Status Date / Time sulfamethoxazole (From AdvReac Rash Verified 01/19/24 15:19 Bactrim) trimethoprim (From Bactrim) AdvReac Rash Verified 01/19/24 15:19 Social History Smoking Status: Current every day smoker tobacco type: cigarettes ROS ROS Narrative Constitutional: Acute fatigue and generalized weakness for 1 week along with flulike symptoms HEENT: Reports systems reviewed and no addt'l complaints, except as documented Respiratory/Chest: No acute shortness of breath or respiratory distress or wheezing. CVS: No chest pain or shortness of breath. Gastrointestinal: Denies coffee ground emesis, hematemesis or vomiting. Rest as described in HPI Genitourinary: Denies burning urination or new urinary tract symptoms Musculoskeletal: Denies acute joint pain or limited range of motion. No acute injury Neurologic: Denies seizure-like symptoms. skin: No ulcer. No rash Endocrinology: Reports systems reviewed and no addt'l complaints, except as documented Hematologic/Lymphatic: Prior 3 history of DVT and PE, last one about 12 years ago. All between 19 to 31 years of age, 2 times PE and 1 time DVT. Not on systemic anticoagulation. He was told to follow-up with hose coupling joiner but did not follow yet. Rest 14 ROS are negative except as mentioned in HPI Vital Signs Vital Signs Vital Signs: 01/19/24 15:17 01/19/24 17:44 Temperature 97.2 F L 98.5 F Temperature Source Temporal Oral Pulse Rate 90 80 Respiratory Rate 18 16 Blood Pressure 141/91 H 134/93 H Blood Pressure Mean 107 106 Pulse Ox 97 95 Oxygen Delivery Method Room Air Room Air Weight Weight: 293 lb 10.491 oz Body Mass Index (BMI) 34.8 Physical Exam Narrative General: Alert, Oriented x3, Cooperative HEENT: Mild icterus. Atraumatic, PERRLA, EOMI, Normocephalic Oral: Oral mucosa dry. No Gingival or Mucosal Lesions/ Ulcerations Neck: Supple, No JVD, Negative Carotid Bruits Chest wall/Lungs: Air entry diminished in bilateral lung bases. No crepitation/rhonchi Cardiovascular: Regular rate, Regular Rhythm, Normal S1, Normal S2, No M/G/R Abdomen: Bowel Sounds Present, Soft, very tender right hypochondrium and right flank. Could not palpate liver because of tenderness. Left lower quadrant left hypochondrium nontender. Not distended. : No dysuria. No renal angle tenderness. No suprapubic tenderness. Extremities: No edema, Capillary Refill Less than 3 Seconds Skin: No rashes, No breakdown Musculoskeletal: No Tenderness to Palpation of Joints or Extremities Neurological: Cranial nerves II-XII grossly intact, DTR 2+/4. No acute focal neurological deficit. Psych/Mental Status: Normal Affect, Appropriate. Results Lab / Micro Data 01/19/24 15:00 01/19/24 15:00 Labs: Laboratory Results - last 24 hr 01/19/24 15:00: WBC 17.6 H, RBC 4.60, Hgb 13.2, Hct 39.1 L, MCV 85.0, MCH 28.7, MCHC 33.8, RDW Std Deviation 44.5 H, RDW Coeff of Luther 14.6, Plt Count 411, MPV 9.4, Immature Gran % (Auto) 4.500 H, Neut % (Auto) 80.7 H, Lymph % (Auto) 10.0 L , Robertson % (Auto) 4.2, Eos % (Auto) 0.1, Baso % (Auto) 0.5, Absolute Neuts (auto) 14.2 H, Absolute Lymphs (auto) 1.76, Nucleated RBC % 0, Sodium 135 L, Potassium 3.5, Chloride 105, Carbon Dioxide 23.0, Anion Gap 7, BUN 14, Creatinine 0.63 L, Estim Creat Clear Calc 230.61, Est GFR (MDRD) Af Amer 180, Est GFR (MDRD) Non-Af 149, BUN/Creatinine Ratio 22.3 H, Glucose 94, Calcium 8.1 L, Total Bilirubin 1.40 H, AST 38 H, ALT 52, Alkaline Phosphatase 186 H, Total Protein 7.1, Albumin 2.2 L, Globulin 4.9 H, Albumin/Globulin Ratio 0.4 L 01/19/24 16:55: Urine Color Amira, Urine Clarity Clear, Urine pH 6.0, Ur Specific [place] 1.020, Urine Protein 30 H, Urine Glucose (UA) Normal, Urine Ketones 5 H, Urine Occult Blood 10 H, Urine Nitrite Positive H, Urine Bilirubin 1 H, Urine Urobilinogen 8 H, Ur Leukocyte Esterase 100 H, Urine RBC 0-5 SEEN, Urine WBC 0-5 SEEN, Ur Squamous Epith Cells 0-5 SEEN, Ur Renal Epithelial Cell 0-5 SEEN, Urine Bacteria 2+, Urine Mucus 3+ Imaging Radiology Impression Abdomen/Pelvis CT 01/19/24 17:37 IMPRESSION: Multiple masses in the liver appear new compared to recent exam suggesting multiple abscesses versus metastatic disease. Colonic diverticulosis. Wall thickening of the sigmoid region with diverticulitis versus mass. Endoscopic correlation recommended. Mild free fluid in the pelvis. Results discussed with Dr. Mccarty. Roberta. : The above Results were Read Back by Marcus Beard MD to Winston Mccarty MD, and understanding confirmed on 01/19/2024 18:24:24 (ET). Electronically Signed: Marcus Beard MD at 18:27 EDT , ADDENDUM: 01/19/24 1834 IMPRESSION: Multiple masses in the liver appear new compared to recent exam suggesting multiple abscesses versus metastatic disease. Colonic diverticulosis. Wall thickening of the sigmoid region with diverticulitis versus mass. Endoscopic correlation recommended. Mild free fluid in the pelvis. Results discussed with Dr. Mccarty. Roberta. : The above Results were Read Back by Marcus Beard MD to Winston Mccarty MD, and understanding confirmed on 01/19/2024 18:24:24 (ET). Electronically Signed: Marcus Beard MD at 18:27 EDT , Assessment & Plan Assessment/Plan (1) Abscess of liver: (2) Acute diverticulitis: PLAN: Plan This is 43-year-old gentleman came to ED for right flank pain and flulike symptoms found to have multiple liver masses consistent with liver abscess. He is admitted for interim period Because tertiary care does not have beds available 1. Multiple liver masses most likely pyogenic liver abscess versus mass: CT abdomen with IV contrast individually reviewed with the surgeon Dr. Clark. Multiple liver masses, reported at least 20, ring-enhancing lesion, largest 1 in the left lobe measuring 11.8 cm with hepatomegaly. Normal spleen. Normal pancreas. Started on IV Zosyn, IV fluid. Clinically patient not having clinical features of sepsis. Leukocytosis 17.6 thousand, platelet count 411,000. U tox is ordered 2. Acute liver injury/transaminitis due to liver abscesses: Total bilirubin 1.4, AST 38, alkaline phosphatase 286,000. ALT 52,000. Hypoalbuminemia, A/G ratio reversed, 0.4. PT 16 elevated, INR 1.3. 3. Acute sigmoid diverticulitis: The CT scan previous about a week ago reported wall thickening of sigmoid region with diverticulitis. Appendix visualized and appears normal. Normal small intestine. Multiple colonic diverticula. 4. Abnormal UA: Patient does not have burning micturition, increased frequency or urgency but dark urine. UA shows nitrite positive. Urine culture ordered. WBC 0-5 cells. Possible asymptomatic bacteriuria 5. History of DVT/PE: Patient is stated he had 2 times PE and one-time DVT between he is age of 19 and 31 years. Not on any systemic anticoagulation. He said he was told to take baby aspirin follow-up with hose coupling joiner but did not follow yet. D-dimer is very high 7.72. 6. Hypertension: Blood pressure is in acceptable range. Monitor BP and titrate home blood pressure medication. 8. GERD: On PPI continue 8. Mild anxiety/depression: Patient on bupropion 150 mg twice daily. Hold it because of hepatotoxic nature DVT prophylaxis: High risk. With history of 3 DVT/PE patient should be on systemic anticoagulation. But the patient will be also scheduled for IR guided procedure in tertiary care. 1 dose of therapeutic Lovenox ordered till CTPA is reported Living will/advanced directive/end of life care: Patient does not have living will or advanced directive. Does not have degrade power of [place] attorney for health. After discussion of benefits/risks procedures involved with full code, DNR CC arrest and DNR CC, the patient opted for full code. Patient does want artificial life support including intubation, tube feed, ventilator and/chest compression, central venous catheter, vasopressor and DC shock if needed Total time spent in [id number] encounter in discussion of advanced directive 17 minutes. Laboratory Results Laboratory Results 01/19/24 15:00: WBC 17.6 H, RBC 4.60, Hgb 13.2, Hct 39.1 L, MCV 85.0, MCH 28.7, MCHC 33.8, RDW Std Deviation 44.5 H, RDW Coeff of Luther 14.6, Plt Count 411, MPV 9.4, Immature Gran % (Auto) 4.500 H, Neut % (Auto) 80.7 H, Lymph % (Auto) 10.0 L , Robertson % (Auto) 4.2, Eos % (Auto) 0.1, Baso % (Auto) 0.5, Absolute Neuts (auto) 14.2 H, Absolute Lymphs (auto) 1.76, Nucleated RBC % 0, Sodium 135 L, Potassium 3.5, Chloride 105, Carbon Dioxide 23.0, Anion Gap 7, BUN 14, Creatinine 0.63 L, Estim Creat Clear Calc 230.61, Est GFR (MDRD) Af Amer 180, Est GFR (MDRD) Non-Af 149, BUN/Creatinine Ratio 22.3 H, Glucose 94, Calcium 8.1 L, Total Bilirubin 1.40 H, AST 38 H, ALT 52, Alkaline Phosphatase 186 H, Total Protein 7.1, Albumin 2.2 L, Globulin 4.9 H, Albumin/Globulin Ratio 0.4 L 01/19/24 16:55: Urine Color Amira, Urine Clarity Clear, Urine pH 6.0, Ur Specific [place] 1.020, Urine Protein 30 H, Urine Glucose (UA) Normal, Urine Ketones 5 H, Urine Occult Blood 10 H, Urine Nitrite Positive H, Urine Bilirubin 1 H, Urine Urobilinogen 8 H, Ur Leukocyte Esterase 100 H, Urine RBC 0-5 SEEN, Urine WBC 0-5 SEEN, Ur Squamous Epith Cells 0-5 SEEN, Ur Renal Epithelial Cell 0-5 SEEN, Urine Bacteria 2+, Urine Mucus 3+, Urine Opiates Screen Pending, Urine Methadone Screen Pending, Ur Barbiturates Screen Pending, Ur Phencyclidine Scrn Pending, Ur Amphetamines Screen Pending, MDMA (Ecstasy) Screen Pending, U Benzodiazepines Scrn Pending, Urine Cocaine Screen Pending, U Cannabinoids Screen Pending, Ur Drug Screen Comment 01/19/24 18:20: PT 16.0 H, INR 1.3, APTT 27.3, Magnesium Pending 01/19/24 18:25: D-Dimer Quant (PE/DVT) 7.72 H* Clinical Impression(s) from Imaging Studies Abdomen/Pelvis CT 01/19/24 17:37 IMPRESSION: Multiple masses in the liver appear new compared to recent exam suggesting multiple abscesses versus metastatic disease. Colonic diverticulosis. Wall thickening of the sigmoid region with diverticulitis versus mass. Endoscopic correlation recommended. Mild free fluid in the pelvis. Results discussed with Dr. Mccarty. Electronically Signed: Marcus Beard MD at 18:27 EDT ,
[2024-01-19] MEDS: Piperacil/Tazobactam 4.5 GM in 0.9% Normal Saline (100mL MB+) 100 ML IV (18:52)
[2024-01-19 19:06] LABS: D-Dimer Quantitative (DVT/PE) 7.72 FEU/ug/m (0.27-0.49)
--- NOTE | 2024-01-19 19:07 | ED.RN ---
Lab called with a critical d-dimer of 7.72. Dr Mccarty informed
--- NOTE | 2024-01-19 19:08 | CT_ITS ---
STUDY: CTA CHEST REASON FOR EXAM: Male, 43 years old. Dyspnea w/ elevated d-dimer and PE''s hx RADIATION DOSAGE (If Supplied By Facility): CTDIvol = ( 17.42 ) mGy, DLP = ( 565.97 ) mGycm TECHNIQUE: The examination was performed with the intravenous administration of IV 100mL Isovue-370. Post-processing of the angiographic images was performed, with multiplanar reformation and 3D reconstruction. Individualized dose optimization techniques were used for this CT. COMPARISON: Chest x-ray FINDINGS: Normal enhancement of the main pulmonary artery and right and left pulmonary arteries. Normal enhancement of the bilateral peripheral pulmonary arteries. There is no demonstrated pulmonary embolism. Normal thoracic aorta and visualized great vessels. There is no demonstrated aortic dissection. Normal heart and pericardium. Normal mediastinum. Normal hilar regions. Normal visualized trachea and bronchi. The lungs are well expanded. There is mild left lower lung atelectasis Normal pleura. Normal chest wall structures. Normal osseous structures. There are multiple hypodense masses in the liver. CT/CTA Chest W/WO Contrast IMPRESSION: CTA chest examination, without a demonstrated pulmonary embolism or arterial dissection. Lower lung atelectasis. Masses in the liver. Electronically Signed: Marcus Beard MD at 20:36 EDT ,
[2024-01-19] MEDS: 0.9% Normal Saline (1000mL) 1,000 ML 999 ML IV (19:25)
[2024-01-19] MEDS: Ondansetron 4 MG/2 ML Vial IV (19:49)
[2024-01-19] MEDS: morphine 8 MG/ML Syringe 6 MG IV (19:49)
[2024-01-19 20:06] LABS: International Normalized Ratio 1.3
[2024-01-19 20:07] LABS: Partial Thromboplast Time 27.3 Seconds (24.1-36.2)
[2024-01-19 20:24] LABS: Magnesium 2.1 mg/dL (1.6-2.6)
[2024-01-19 21:06] LABS: Amphetamine Urine VISTA NEGATIVE (<1000 ng/mL); Barbiturate Urine VISTA NEGATIVE (< 200 ng/mL); Benzodiazepine Urine VISTA NEGATIVE (< 200 ng/mL); Cocaine Urine VISTA NEGATIVE (< 300 ng/mL); Ecstacy Urine VISTA NEGATIVE (< 500 ng/mL); Methadone Urine VISTA NEGATIVE (< 300 ng/mL); PCP Urine VISTA NEGATIVE (< 25 ng/mL); THC Urine VISTA POSITIVE (< 50 ng/mL); Vista UDS pH Range 6
[2024-01-19 21:33] LABS: Lactic Acid 1.1 mmol/L (0.4-1.9)
[2024-01-19] MEDS: Enoxaparin 150 MG/ML Syringe 130 MG SC (21:42)
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
[2024-01-19] MEDS: 0.9% Saline Lock 10 ML Syringe IV (23:54)
[2024-01-19] MEDS: KCL 20MEQ in 0.9% NS 20 MEQ/1,000 ML IV.SOLN. 100 MEQ IV (23:54)
[2024-01-20] VITALS (18 sets, daily range): BP systolic 138–170; BP diastolic 78–102; PULSE 83–91; RESP 13–31; TEMP 36.7–37.2; O2SAT 93–98; BMI 35.2
[2024-01-20] MEDS: Piperacil/Tazobactam 3.375 GM in 0.9% Normal Saline (50mL MB+) 50 ML IV ×2 (05:10→13:54)
[2024-01-20] MEDS: 0.9% Saline Lock 10 ML Syringe IV ×5 (05:10→17:56)
[2024-01-20 06:29] LABS: Absolute Lymphocyte Count 1.74 X10^3/uL (0.83-4.51); Absolute Neutrophil Count 14.3 X10^3/uL (2.0-7.7); Basophil# 0.12 X10^3/uL; Basophil% 0.7 % (0-1); Eosinophil# 0.04 X10^3/uL; Eosinophils% 0.2 % (0-5); Hematocrit 35.3 % (40-54); Hemoglobin 11.8 g/dL (13.0-16.5); Lymphocyte # 1.74 X10^3/ul (0.83-4.51); Lymphocyte % 9.9 % (19-41); Mean Corp Hgb Conc 33.4 g/dL (32-36); Mean Corpuscular Hgb 28.2 pg (27.0-32.0); Mean Corpuscular Volume 84.4 fL (80-94); Mean Platelet Vol. 9.7 fl (6.2-12.0); Monocyte# 0.75 X10^3/uL; Monocyte% 4.2 % (0-10); NRBC Flagged by Analyzer 0 % (0-5); Neutrophil # 14.31 X10^3/uL (2.7-7.7); Platelet Count 366 K/mm3 (150-450); RBC Distribution Width CV 14.7 % (11.6-14.6); RBC Distribution Width SD 45.1 fl (35.1-43.9); Red Blood Count 4.18 M/mm3 (4.6-6.2); White Blood Count 17.7 K/mm3 (4.4-11.0)
[2024-01-20] MEDS: Vancomycin HCl 2,000 MG in 0.9% Normal Saline (500mL Bag) 500 ML 250 MG IV (06:34)
[2024-01-20] MEDS: Acetaminophen 325 MG Tablet 650 MG PO (06:45)
[2024-01-20] MEDS: Ondansetron 4 MG/2 ML Vial IV (06:45)
--- NOTE | 2024-01-20 06:51 | PCM.RX.CS ---
Consult Antibiotic Management Pharmacy has been consulted to manage selected antibiotic: Vancomycin Type of Intervention Type of Consult: New start Suspected Infection Suspected Infection: Other Prior Doses of Antibiotics Prior Doses of Antibiotics Received/Current Regimen: 01/20/24 @ 0634 Patient received 2000mg of Vancomycin Microbiology Microbiology: Microbiology 01/19/24 21:06 Mucosa - Nose SARS-CoV-2, Influenza & RSV (PCR) - Final Dosing Weight Weight used for dosin kg Goal Trough Goal Trough: 15-20 mcg/mL Pharmacy Plan for Drug Dosing Pharmacy Plan for Drug Dosing: Patient will receive 1500mg of Vancomycin every 8 hours starting 01/20/24 @ 1430 Pharmacy Service will continue to monitor and adjust dosing as required. Follow-Up Labs Follow-Up Labs: Trough: Vancomycin Date/Time Labs Ordered Labs to be done on [date and time ordered]: 01/21/24 @ 0600
[2024-01-20 06:53] LABS: ALB/GLOB Ratio 0.4 RATIO (0.9-2.4); AST(SGOT) 36 U/L (15-37); Alanine Aminotransfer ALT/SGPT 42 U/L (16-61); Albumin, Serum 1.9 g/dL (3.2-5.0); Alkaline Phosphatase 146 U/L (45-117); Anion Gap 7 (5-15); BUN 9 mg/dL (7-18); BUN/Creat Ratio 17.8 RATIO (10-20); Calcium,Total 7.8 mg/dL (8.5-10.1); Chloride 105 mmol/L (98-107); Creatinine, Serum 0.51 mg/dL (0.70-1.30); EST Glomerular Filtration Rate 190 mL/min (>60); Est Glom Filt Rate - Afr Amer 230 mL/min (>60); Estimated Creatinine Clearance 279.05 ml/min; Globulin 4.4 g/dL (2.2-4.2); Glucose 88 mg/dL (74-106); Potassium 3.9 mmol/L (3.5-5.1); Protein, Total 6.3 g/dL (6.4-8.2); Sodium Level 135 mmol/L (136-145)
--- NOTE | 2024-01-20 08:17 | PN.SURG_ITS ---
Subjective Subjective Patient is evaluated resting comfortably in bed. Patient denies any nausea, vomiting, fever. Patient notes pain in the right upper quadrant is stable. No better, however no worse. Objective Data Objective Data Vital Signs: Vital Signs Temp Pulse Resp BP Pulse Ox O2 Del Method 98.9 F 90 18 144/94 H 97 Room Air 01/20/24 03:20 01/20/24 03:20 01/20/24 03:20 01/20/24 03:20 01/20/24 03:20 01/20/24 08:06 Oxygen Delivery Method Room Air Weight: 289 lb 3.944 oz Body Mass Index (BMI) 35.2 Intake & Output: Intake and Output for Last 24 Hours 01/18/24 01/19/24 01/20/24 23:59 23:59 23:59 Intake Total 1100 / 1100 Output Total 350 / 350 700 / 700 Balance 750 / 750 -700 / -700 Lab / Micro Data 01/20/24 06:01 01/20/24 06:01 Labs: Laboratory Results - last 24 hr 01/19/24 15:00: WBC 17.6 H, RBC 4.60, Hgb 13.2, Hct 39.1 L, MCV 85.0, MCH 28.7, MCHC 33.8, RDW Std Deviation 44.5 H, RDW Coeff of Luther 14.6, Plt Count 411, MPV 9.4, Immature Gran % (Auto) 4.500 H, Neut % (Auto) 80.7 H, Lymph % (Auto) 10.0 L , [place] % (Auto) 4.2, Eos % (Auto) 0.1, Baso % (Auto) 0.5, Absolute Neuts (auto) 14.2 H, Absolute Lymphs (auto) 1.76, Nucleated RBC % 0, Sodium 135 L, Potassium 3.5, Chloride 105, Carbon Dioxide 23.0, Anion Gap 7, BUN 14, Creatinine 0.63 L, Estim Creat Clear Calc 230.61, Est GFR (MDRD) Af Amer 180, Est GFR (MDRD) Non-Af 149, BUN/Creatinine Ratio 22.3 H, Glucose 94, Calcium 8.1 L, Total Bilirubin 1.40 H, AST 38 H, ALT 52, Alkaline Phosphatase 186 H, Total Protein 7.1, Albumin 2.2 L, Globulin 4.9 H, Albumin/Globulin Ratio 0.4 L 01/19/24 16:55: Urine Color Amira, Urine Clarity Clear, Urine pH 6.0, Ur Specific [place] 1.020, Urine Protein 30 H, Urine Glucose (UA) Normal, Urine Ketones 5 H, Urine Occult Blood 10 H, Urine Nitrite Positive H, Urine Bilirubin 1 H, Urine Urobilinogen 8 H, Ur Leukocyte Esterase 100 H, Urine RBC 0-5 SEEN, Urine WBC 0-5 SEEN, Ur Squamous Epith Cells 0-5 SEEN, Ur Renal Epithelial Cell 0-5 SEEN, Urine Bacteria 2+, Urine Mucus 3+, Urine Opiates Screen NEGATIVE, Urine Methadone Screen NEGATIVE, Ur Barbiturates Screen NEGATIVE, Ur Phencyclidine Scrn NEGATIVE, Ur Amphetamines Screen NEGATIVE, MDMA (Ecstasy) Screen NEGATIVE, U Benzodiazepines Scrn NEGATIVE, Urine Cocaine Screen NEGATIVE, U Cannabinoids Screen POSITIVE H, Ur Drug Screen Comment 01/19/24 18:20: PT 16.0 H, INR 1.3, APTT 27.3, Magnesium 2.1 01/19/24 18:25: D-Dimer Quant (PE/DVT) 7.72 H* 01/19/24 20:00: Lactic Acid 1.1 01/20/24 06:01: WBC 17.7 H, RBC 4.18 L, Hgb 11.8 L, Hct 35.3 L, MCV 84.4, MCH 28.2, MCHC 33.4, RDW Std Deviation 45.1 H, RDW Coeff of Luther 14.7 H, Plt Count 366, MPV 9.7, Immature Gran % (Auto) 4.000 H, Neut % (Auto) 81.0 H, Lymph % (Auto) 9.9 L, [place] % (Auto) 4.2, Eos % (Auto) 0.2, Baso % (Auto) 0.7, Absolute Neuts (auto) 14.3 H, Absolute Lymphs (auto) 1.74, Nucleated RBC % 0, Sodium 135 L, Potassium 3.9, Chloride 105, Carbon Dioxide 23.0, Anion Gap 7, BUN 9, C reatinine 0.51 L, Estim Creat Clear Calc 279.05, Est GFR (MDRD) Af Amer 230, Est GFR (MDRD) Non-Af 190, BUN/Creatinine Ratio 17.8, Glucose 88, Calcium 7.8 L, T otal Bilirubin 1.20 H, AST 36, ALT 42, Alkaline Phosphatase 146 H, Total Protein 6.3 L, Albumin 1.9 L, Globulin 4.4 H, Albumin/Globulin Ratio 0.4 L Micro: Microbiology 01/19/24 21:06 Mucosa - Nose SARS-CoV-2, Influenza & RSV (PCR) - Final Radiography Diagnostic Testing: Radiology Impression Abdomen/Pelvis CT 01/19/24 17:37 IMPRESSION: Multiple masses in the liver appear new compared to recent exam suggesting multiple abscesses versus metastatic disease. Colonic diverticulosis. Wall thickening of the sigmoid region with diverticulitis versus mass. Endoscopic correlation recommended. Mild free fluid in the pelvis. Results discussed with Dr. Mccarty. Sadiq.B. : The above Results were Read Back by Marcus Beard MD to Winston Mccarty MD, and understanding confirmed on 01/19/2024 18:24:24 (ET). Electronically Signed: Marcus Beard MD at 18:27 EDT Reading Location ID and State: [facility] / [place] , Service support , ADDENDUM: 01/19/24 1834 IMPRESSION: Multiple masses in the liver appear new compared to recent exam suggesting multiple abscesses versus metastatic disease. Colonic diverticulosis. Wall thickening of the sigmoid region with diverticulitis versus mass. Endoscopic correlation recommended. Mild free fluid in the pelvis. Results discussed with Dr. Mccarty. Roberta. : The above Results were Read Back by Marcus Beard MD to Winston Mccarty MD, and understanding confirmed on 01/19/2024 18:24:24 (ET). Electronically Signed: Marcus Beard MD at 18:27 EDT , Chest X-Ray 01/19/24 18:13 IMPRESSION: Left lower lung scarring or atelectasis. Electronically Signed: Marcus Beard MD at 19:02 EDT , Chest CTA 01/19/24 19:08 IMPRESSION: CTA chest examination, without a demonstrated pulmonary embolism or arterial dissection. Lower lung atelectasis. Masses in the liver. Electronically Signed: Marcus Beard MD at 20:36 EDT Reading Location ID and State: [address] [place] [address] , Service support , Rhythm Strip Rhythm Strip: Sinus Rhythm Rate: 81 Ectopy: None Physical Exam GI GI Narrative: Abdomen- soft, tenderness in the RUQ Assessment & Plan Assessment/Plan (1) Abscess of liver: (2) Acute diverticulitis: PLAN: Plan I am following this patient in conjunction with Dr. Clark. Patient has multiple liver abscesses seen on CT scan of the ab/pel of unknown etiology, possibly from sigmoid diverticulitis Continue IV antibiotics Considering drain placement in radiology versus transfer to tertiary facility We will continue to monitor this patient Charges/Coding Visit Charges Inpatient E&M: 93886 [facility] Hosp L1
[2024-01-20] MEDS: Pantoprazole Sodium 40 MG Tablet PO (08:25)
[2024-01-20] MEDS: HYDROmorphone 1 MG/ML Syringe IV ×3 (08:26→17:56)
--- NOTE | 2024-01-20 08:42 | CASEMGMT ---
Insurance review for hospitals In-network with [employer] insurance if transfer is recommended is as follows: [facility], [place], [facility], [facility], [facility], [facility], [facility]), [facility], [facility], and . Racquel Charlton, Discharge Planning Asst.
--- NOTE | 2024-01-20 09:19 | PCM.PN.HOSP ---
Reason for Visit Reason for Visit: Diagnoses Diverticulitis of intestine, part unspecified, without perforation or abscess without bleeding (01/19/24) Abscess of liver (01/19/24) Subjective Subjective Still having abdominal pain. States he has been sick very long. But just been having night sweats, lack appetite and not eating much. Objective Data Objective Data Vital Signs: Vital Signs Temp Pulse Resp BP Pulse Ox O2 Del Method 36.8 C 83 18 140/94 H 96 Room Air 01/20/24 08:45 01/20/24 08:45 01/20/24 08:45 01/20/24 08:45 01/20/24 08:45 01/20/24 08:45 Oxygen Delivery Method Room Air Weight: 131.2 kg Body Mass Index (BMI) 35.2 Intake & Output: Intake and Output for Last 24 Hours 01/18/24 01/19/24 01/20/24 23:59 23:59 23:59 Intake Total 1100 / 1100 540 / 540 Output Total 350 / 350 700 / 700 Balance 750 / 750 -160 / -160 Lab / Micro Data 01/20/24 06:01 01/20/24 06:01 Labs: Laboratory Results - last 24 hr 01/19/24 15:00: WBC 17.6 H, RBC 4.60, Hgb 13.2, Hct 39.1 L, MCV 85.0, MCH 28.7, MCHC 33.8, RDW Std Deviation 44.5 H, RDW Coeff of Luther 14.6, Plt Count 411, MPV 9.4, Immature Gran % (Auto) 4.500 H, Neut % (Auto) 80.7 H, Lymph % (Auto) 10.0 L, [place] % (Auto) 4.2, Eos % (Auto) 0.1, Baso % (Auto) 0.5, Absolute Neuts (auto) 14.2 H, Absolute Lymphs (auto) 1.76, Nucleated RBC % 0, Sodium 135 L, Potassium 3.5, Chloride 105, Carbon Dioxide 23.0, Anion Gap 7, BUN 14, Creatinine 0.63 L, Estim Creat Clear Calc 230.61, Est GFR (MDRD) Af Amer 180, Est GFR (MDRD) Non-Af 149, BUN/Creatinine Ratio 22.3 H, Glucose 94, Calcium 8.1 L, Total Bilirubin 1.40 H, AST 38 H, ALT 52, Alkaline Phosphatase 186 H, Total Protein 7.1, Albumin 2.2 L, Globulin 4.9 H, Albumin/Globulin Ratio 0.4 L 01/19/24 16:55: Urine Color Amira, Urine Clarity Clear, Urine pH 6.0, Ur Specific [place] 1.020, Urine Protein 30 H, Urine Glucose (UA) Normal, Urine Ketones 5 H, Urine Occult Blood 10 H, Urine Nitrite Positive H, Urine Bilirubin 1 H, Urine Urobilinogen 8 H, Ur Leukocyte Esterase 100 H, Urine RBC 0-5 SEEN, Urine WBC 0-5 SEEN, Ur Squamous Epith Cells 0-5 SEEN, Ur Renal Epithelial Cell 0-5 SEEN, Urine Bacteria 2+, Urine Mucus 3+, Urine Opiates Screen NEGATIVE, Urine Methadone Screen NEGATIVE, Ur Barbiturates Screen NEGATIVE, Ur Phencyclidine Scrn NEGATIVE, Ur Amphetamines Screen NEGATIVE, MDMA (Ecstasy) Screen NEGATIVE, U Benzodiazepines Scrn NEGATIVE, Urine Cocaine Screen NEGATIVE, U Cannabinoids Screen POSITIVE H, Ur Drug Screen Comment 01/19/24 18:20: PT 16.0 H, INR 1.3, APTT 27.3, Magnesium 2.1 01/19/24 18:25: D-Dimer Quant (PE/DVT) 7.72 H* 01/19/24 20:00: Lactic Acid 1.1 01/20/24 06:01: WBC 17.7 H, RBC 4.18 L, Hgb 11.8 L, Hct 35.3 L, MCV 84.4, MCH 28.2, MCHC 33.4, RDW Std Deviation 45.1 H, RDW Coeff of Luther 14.7 H, Plt Count 366, MPV 9.7, Immature Gran % (Auto) 4.000 H, Neut % (Auto) 81.0 H, Lymph % (Auto) 9.9 L, [place] % (Auto) 4.2, Eos % (Auto) 0.2, Baso % (Auto) 0.7, Absolute Neuts (auto) 14.3 H, Absolute Lymphs (auto) 1.74, Nucleated RBC % 0, Sodium 135 L, Potassium 3.9, Chloride 105, Carbon Dioxide 23.0, Anion Gap 7, BUN 9, Creatinine 0.51 L, Estim Creat Clear Calc 279.05, Est GFR (MDRD) Af Amer 230, Est GFR (MDRD) Non-Af 190, BUN/Creatinine Ratio 17.8, Glucose 88, Calcium 7.8 L, Total Bilirubin 1.20 H, AST 36, ALT 42, Alkaline Phosphatase 146 H, Total Protein 6.3 L, Albumin 1.9 L, Globulin 4.4 H, Albumin/Globulin Ratio 0.4 L Micro: Microbiology 01/19/24 21:06 Mucosa - Nose SARS-CoV-2, Influenza & RSV (PCR) - Final Radiography Diagnostic Testing: Radiology Impression Abdomen/Pelvis CT 01/19/24 17:37 IMPRESSION: Multiple masses in the liver appear new compared to recent exam suggesting multiple abscesses versus metastatic disease. Colonic diverticulosis. Wall thickening of the sigmoid region with diverticulitis versus mass. Endoscopic correlation recommended. Mild free fluid in the pelvis. Results discussed with Dr. Mccarty. Roberta. : The above Results were Read Back by Marcus Beard MD to Winston Mccarty MD, and understanding confirmed on 01/19/2024 18:24:24 (ET). Electronically Signed: Marcus Beard MD at 18:27 EDT , ADDENDUM: 01/19/24 1834 IMPRESSION: Multiple masses in the liver appear new compared to recent exam suggesting multiple abscesses versus metastatic disease. Colonic diverticulosis. Wall thickening of the sigmoid region with diverticulitis versus mass. Endoscopic correlation recommended. Mild free fluid in the pelvis. Results discussed with Dr. Mccarty. Sadiq.B. : The above Results were Read Back by Marcus Beard MD to Winston Mccarty MD, and understanding confirmed on 01/19/2024 18:24:24 (ET). Electronically Signed: Marcus Beard MD at 18:27 EDT , Chest X-Ray 01/19/24 18:13 IMPRESSION: Left lower lung scarring or atelectasis. Electronically Signed: Marcus Beard MD at 19:02 EDT , Chest CTA 01/19/24 19:08 IMPRESSION: CTA chest examination, without a demonstrated pulmonary embolism or arterial dissection. Lower lung atelectasis. Masses in the liver. Electronically Signed: Marcus Beard MD at 20:36 EDT , Rhythm Strip Rhythm Strip: Sinus Rhythm Rate: 81 Ectopy: None Physical Exam Const alert and no apparent distress Constitutional Narrative: Nontoxic. HEENT head/scalp atraumatic Resp normal respiratory effort, no retractions, no use of accessory muscles and clear to auscultation bilaterally Cardio regular rate, regular rhythm, S1 normal heart sound and S2 normal heart sound GI normal to inspection, nondistended, normoactive bowel sounds GI Narrative: Hepatomegaly. Tender to palpation in right upper quadrant. No rebound. No guarding. Neuro Sensorium / Orientation: awake and alert Psych affect normal Assessment & Plan Assessment/Plan (1) Abscess of liver: (2) Acute diverticulitis: PLAN: Plan Suspected liver abscesses. Largest measuring 11x12 cm. Patient had a CAT scan performed on the third that was done without contrast that did not visualize the abscesses/masses. Though that was again done without contrast. No other additional imaging other than some ultrasounds from 2013 which appear to be normal liver at that time. Patient denies any travel. DW Dr. Clark who continues to strongly recommend transfer to tertiary facility. Dr. Clark reached out to interventional radiology and the plan is to take the patient down to have an IR placed drain into the largest of the abscesses. No excepting facilities were available last night though was noted that the [facility] recommended calling back later today. I did reach out to [facility] and they do not have any open beds available but I did provide information about the patient, my callback number as well as Dr. Clark's. Dr. Clark also reached out to [facility] and patient has been accepted. Continue antibiotics with Vanco and pip-tazo. Abnormal urinalysis: Not consistent with urinary tract infection. Urinary tract infection ruled out. Disposition: Pending transfer to the [facility]. Greater than 50 minutes of which greater than 50% of time was counseling the patient at bedside, reviewing the location of the abscesses with the patient and his mother at bedside. Discussing the likelihood of these being infectious and recommendations of antibiotics as well as additional interventions. Also discussing of the reason for transferring to tertiary facility for more definitive management if necessary. Charges/Coding Visit Charges Inpatient E&M: 22359 Subs Hosp L3
[2024-01-20] MEDS: KCL 20MEQ in 0.9% NS 20 MEQ/1,000 ML IV.SOLN. 100 MEQ IV (09:55)
--- NOTE | 2024-01-20 10:40 | PCM.CONS.GEN ---
Assessment & Plan Assessment/Plan (1) Acute diverticulitis: (2) Abscess of liver: PLAN: Cont vanc/zosyn. Bcx pending. Possible transfer. Surgery is following. CT 01/11 with possible sigmoid diverticulitis. Will also check hiv. Will follow, thank you HPI Consult Data Date of Consult: 01/20/24 HPI Narrative Reason for Consultation: liver abscess HPI Narrative: SHEYLA KEENAN, is a 43 M with remote h/o PE and ankle ORIF, presented to ED 01/11 with 4 days of RUQ pain, chills, fever, n/v. No dysuria. Dx with diverticulitis, sent home with cipro/flagyl. Sx worsened, pain in RUQ was stabbing, continuous. Came back to ED 01/18, CT now showed multiple masses in liver. Admitted on vanc/zosyn, surgery consulted. Denies any other recent infection, abx, travel, or dental work. Full ROS performed and neg except as noted above. [facility] Medical History Depression GERD (gastroesophageal reflux disease) Hypertension Peripheral vascular disease of extremity Lymphedema of both lower extremities History of pulmonary embolism Home Medications ?Medication ?Instructions ?Recorded ?Last Taken ?Type pantoprazole 40 mg tablet,delayed 40 mg PO DAILY heart burn 06/05/14 Unknown History release naproxen sodium 375 mg 375 mg PO DAILY 04/12/15 Unknown History tablet,extended release 24 hr mphase (Naprelan CR) clindamycin HCl 150 mg capsule 300 mg (2 x 150 mg) PO 4X/DAY ##80 02/09/17 Unknown Rx naproxen 500 mg tablet 500 mg PO BID PRN #20 tabs 02/09/17 Unknown Rx ciprofloxacin HCl 500 mg tablet 500 mg PO BID #20 tabs 01/12/24 Unknown Rx (Cipro) ibuprofen 800 mg tablet 800 mg PO Q8H PRN pain #20 tabs 01/12/24 Unknown Rx metronidazole 500 mg tablet 500 mg PO Q8H 10 days #30 tabs 01/12/24 Unknown Rx Allergy/AdvReac Type Severity Reaction Status Date / Time sulfamethoxazole (From AdvReac Rash Verified 01/19/24 15:19 Bactrim) trimethoprim (From Bactrim) AdvReac Rash Verified 01/19/24 15:19 Social History Smoking Status: Current every day smoker tobacco type: cigarettes Physical Exam Const alert, oriented x3 and no apparent distress General Appearance: cooperative HEENT normocephalic and head/scalp atraumatic Eyes PERRL and EOMs intact bilaterally Neck supple and No nodes Resp normal air movement and clear to auscultation bilaterally Cardio regular rate and regular rhythm GI soft to palpation and non-distended GI Narrative: mild RUQ soreness Extremity General Extremity: Negative for edema Skin no rashes or lesions noted Neuro CN's II-XII intact bilaterally Lab / Micro Data Attestation: I reviewed the patient's lab results. 01/20/24 06:01 01/20/24 06:01 Labs: Laboratory Results - last 24 hr 01/19/24 15:00: WBC 17.6 H, RBC 4.60, Hgb 13.2, Hct 39.1 L, MCV 85.0, MCH 28.7, MCHC 33.8, RDW Std Deviation 44.5 H, RDW Coeff of Luther 14.6, Plt Count 411, MPV 9.4, Immature Gran % (Auto) 4.500 H, Neut % (Auto) 80.7 H, Lymph % (Auto) 10.0 L, [place] % (Auto) 4.2, Eos % (Auto) 0.1, Baso % (Auto) 0.5, Absolute Neuts (auto) 14.2 H, Absolute Lymphs (auto) 1.76, Nucleated RBC % 0, Sodium 135 L, Potassium 3.5, Chloride 105, Carbon Dioxide 23.0, Anion Gap 7, BUN 14, Creatinine 0.63 L, Estim Creat Clear Calc 230.61, Est GFR (MDRD) Af Amer 180, Est GFR (MDRD) Non-Af 149, BUN/Creatinine Ratio 22.3 H, Glucose 94, Calcium 8.1 L, Total Bilirubin 1.40 H, AST 38 H, ALT 52, Alkaline Phosphatase 186 H, Total Protein 7.1, Albumin 2.2 L, Globulin 4.9 H, Albumin/Globulin Ratio 0.4 L 01/19/24 16:55: Urine Color Amira, Urine Clarity Clear, Urine pH 6.0, Ur Specific [place] 1.020, Urine Protein 30 H, Urine Glucose (UA) Normal, Urine Ketones 5 H, Urine Occult Blood 10 H, Urine Nitrite Positive H, Urine Bilirubin 1 H, Urine Urobilinogen 8 H, Ur Leukocyte Esterase 100 H, Urine RBC 0-5 SEEN, Urine WBC 0-5 SEEN, Ur Squamous Epith Cells 0-5 SEEN, Ur Renal Epithelial Cell 0-5 SEEN, Urine Bacteria 2+, Urine Mucus 3+, Urine Opiates Screen NEGATIVE, Urine Methadone Screen NEGATIVE, Ur Barbiturates Screen NEGATIVE, Ur Phencyclidine Scrn NEGATIVE, Ur Amphetamines Screen NEGATIVE, MDMA (Ecstasy) Screen NEGATIVE, U Benzodiazepines Scrn NEGATIVE, Urine Cocaine Screen NEGATIVE, U Cannabinoids Screen POSITIVE H, Ur Drug Screen Comment 01/19/24 18:20: PT 16.0 H, INR 1.3, APTT 27.3, Magnesium 2.1 01/19/24 18:25: D-Dimer Quant (PE/DVT) 7.72 H* 01/19/24 20:00: Lactic Acid 1.1 01/20/24 06:01: WBC 17.7 H, RBC 4.18 L, Hgb 11.8 L, Hct 35.3 L, MCV 84.4, MCH 28.2, MCHC 33.4, RDW Std Deviation 45.1 H, RDW Coeff of Luther 14.7 H, Plt Count 366, MPV 9.7, Immature Gran % (Auto) 4.000 H, Neut % (Auto) 81.0 H, Lymph % (Auto) 9.9 L, [place] % (Auto) 4.2, Eos % (Auto) 0.2, Baso % (Auto) 0.7, Absolute Neuts (auto) 14.3 H, Absolute Lymphs (auto) 1.74, Nucleated RBC % 0, Sodium 135 L, Potassium 3.9, Chloride 105, Carbon Dioxide 23.0, Anion Gap 7, BUN 9, Creatinine 0.51 L, Estim Creat Clear Calc 279.05, Est GFR (MDRD) Af Amer 230, Est GFR (MDRD) Non-Af 190, BUN/Creatinine Ratio 17.8, Glucose 88, Calcium 7.8 L, Total Bilirubin 1.20 H, AST 36, ALT 42, Alkaline Phosphatase 146 H, Total Protein 6.3 L, Albumin 1.9 L, Globulin 4.4 H, Albumin/Globulin Ratio 0.4 L Micro: Microbiology 01/19/24 21:06 Mucosa - Nose SARS-CoV-2, Influenza & RSV (PCR) - Final Rhythm Strip Rhythm Strip: Sinus Rhythm Rate: 81 Ectopy: None Imaging Radiology Impression Abdomen/Pelvis CT 01/19/24 17:37 IMPRESSION: Multiple masses in the liver appear new compared to recent exam suggesting multiple abscesses versus metastatic disease. Colonic diverticulosis. Wall thickening of the sigmoid region with diverticulitis versus mass. Endoscopic correlation recommended. Mild free fluid in the pelvis. Results discussed with Dr. Mccarty. Roberta. : The above Results were Read Back by Marcus Beard MD to Winston Mccarty MD, and understanding confirmed on 01/19/2024 18:24:24 (ET). Electronically Signed: Marcus Beard MD at 18:27 EDT , ADDENDUM: 01/19/24 1834 IMPRESSION: Multiple masses in the liver appear new compared to recent exam suggesting multiple abscesses versus metastatic disease. Colonic diverticulosis. Wall thickening of the sigmoid region with diverticulitis versus mass. Endoscopic correlation recommended. Mild free fluid in the pelvis. Results discussed with Dr. Mccarty. Roberta. : The above Results were Read Back by Marcus Beard MD to Winston Mccarty MD, and understanding confirmed on 01/19/2024 18:24:24 (ET). Electronically Signed: Marcus Beard MD at 18:27 EDT , Chest X-Ray 01/19/24 18:13 IMPRESSION: Left lower lung scarring or atelectasis. Electronically Signed: Marcus Beard MD at 19:02 EDT , Chest CTA 01/19/24 19:08 IMPRESSION: CTA chest examination, without a demonstrated pulmonary embolism or arterial dissection. Lower lung atelectasis. Masses in the liver. Electronically Signed: Marcus Beard MD at 20:36 EDT ,
[2024-01-20 11:53] LABS: HIV - WCH Non-Reactive (Nonreactive)
[2024-01-20] MEDS: proCHLORPERazine 10 MG/2 ML Vial 5 MG IV (11:53)
[2024-01-20] MEDS: Vancomycin HCl 1,500 MG in 0.9% Normal Saline (500mL Bag) 500 ML 250 MG IV (13:54)
[2024-01-20] MEDS: 0.9% Normal Saline (250mL Bag) 250 ML 15 ML IV (14:49)
[2024-01-20] MEDS: Midazolam 2 MG/2 ML Syringe IV ×2 (14:57→15:09)
[2024-01-20] MEDS: fentaNYL 100 MCG/2 ML Ampul IV ×2 (14:59→15:09)
[2024-01-20] MEDS: Lidocaine 2% (20 ml mdv) 20 ML Vial INFILT (15:10)
--- NOTE | 2024-01-20 15:26 | PRO.PCM_ITS ---
Procedure Report Date of Procedure: 01/20/24 Assessment & Plan Assessment/Plan (1) Abscess of liver: PLAN: PROCEDURE: CT DIRECTED ABSCESS DRAINAGE, [ ] ORDERING PROVIDER: [ ] INDICATION: [ ], [ ] years old. [ ] PROVIDER: VALENTIN Gonzalez CONSENT: Written informed consent was obtained having explained the risks, benefits and alternatives in detail with the [ ] who accepted the risks and agreed to proceed. Laboratory review and clinical assessment was performed. PRE-PROCEDURE SEDATION ASSESSMENT: Current history and physical dictated by referring physician and reviewed. No clinical changes since date of exam. Patient has a Mallampati Score of Class [ ] and ASA Class of [ ]. PROCEDURAL SEDATION PROTOCOL: The Drugs used were: [ ] mg Versed, IV, and [ ] mcg Fentanyl, IV. The sedation time was: [ ] minutes, starting at [ ] and terminated at [ ]. The procedural sedation protocol was independently monitored by the department nurse. RADIATION DOSAGE (If Supplied By Facility): CTDIvol = [ ] mGy, DLP = [ ] mGycm Individualized dose optimization techniques were used for this CT. CONSENT: Written informed consent was obtained having explained the risks, benefits and alternatives in detail with the patient who accepted the risks and agreed to proceed. Laboratory review and clinical assessment was performed. TECHNIQUE: CT sections were made through the abdomen and pelvis revealing an abscess in the [ ] . The skin surface was prepped and draped in a sterile fashion. Puncture of this collection was performed with a 8 Japanese catheter and fluid was aspirated. Drainage catheter was then inserted into the collection and formed into position. Additional fluid was aspirated for a total of approximately [ ] cc of [ ] colored fluid. The catheter was sutured into position to allow for continued drainage. Followup CT sections reveals good position of the catheter. IMPRESSION: 1. CT directed drainage of a fluid collection using CT image guidance and image documentation as described. 2. Procedural Sedation protocol utilized with independent monitoring by the department nurse.
--- NOTE | 2024-01-20 15:26 | PCM.OP.PRO ---
Procedure Report Date of Procedure: 01/20/24 Assessment & Plan Assessment/Plan (1) Abscess of liver: PLAN: PROCEDURE: CT DIRECTED ABSCESS DRAINAGE, LIVER ORDERING PROVIDER: Dr. Clark INDICATION: Male, 43 years old. Liver abscess PROVIDER: VALENTIN Gonzalez CONSENT: Written informed consent was obtained having explained the risks, benefits and alternatives in detail with the patient who accepted the risks and agreed to proceed. Laboratory review and clinical assessment was performed. PRE-PROCEDURE SEDATION ASSESSMENT: Current history and physical dictated by referring physician and reviewed. No clinical changes since date of exam. Patient has a Mallampati Score of Class 2 and ASA Class of 3. PROCEDURAL SEDATION PROTOCOL: The Drugs used were: 3 mg Versed, IV, and 75 mcg Fentanyl, IV. The sedation time was: 27 minutes, starting at 1457 and terminated at 1524. The procedural sedation protocol was independently monitored by the department nurse. RADIATION DOSAGE (If Supplied By Facility): CTDIvol = 20.74 mGy, DLP = 809.39 mGycm Individualized dose optimization techniques were used for this CT. CONSENT: Written informed consent was obtained having explained the risks, benefits and alternatives in detail with the patient who accepted the risks and agreed to proceed. Laboratory review and clinical assessment was performed. TECHNIQUE: CT sections were made through the abdomen and pelvis revealing an abscess in the liver, left lobe. The skin surface was prepped and draped in a sterile fashion. Puncture of this collection was performed with a 8 English catheter and fluid was aspirated. Drainage catheter was then inserted into the collection and formed into position. Additional fluid was aspirated for a total of approximately 330 cc of red-tinged purulent colored fluid. The catheter was secured using a Stay-Fix dressing for continued drainage utilizing SHARDA drain. Followup CT sections reveals good position of the catheter. IMPRESSION: 1. CT directed drainage of a fluid collection using CT image guidance and image documentation as described. 2. Procedural Sedation protocol utilized with independent monitoring by the department nurse. Procedures Radiology Radiology CT Procedures: 22958 Image guided catheter drainage
--- NOTE | 2024-01-20 16:32 | DS.PCM_ITS ---
Providers Date of Admission: 01/19/24 Primary Care Physician: Dr. Juvenal Saleem MD Consultations 01/19/24 23:21 Consult: General Surgery Routine Consulting Provider: Mark Clark Reason for Consult: Multiple liver masses EMERGENT Consult: No Notified: Yes Date Notified: 01/19/24 Time Notified: 19:39 Method of Notification: Verbal Consult: Infectious Disease Routine Consulting Provider: Bruno Santa Reason for Consult: Multiple liver abscesses EMERGENT Consult: No Notified: Yes Date Notified: 01/19/24 Time Notified: 19:38 Method of Notification: Text Reason For Visit: LIVER ABSCESS Diagnosis Discharge Diagnosis (1) Abscess of liver: Status: Acute Code(s): K75.0 - Abscess of liver Plan Suspected liver abscesses. * Largest measuring 11x12 cm. Patient had a CAT scan performed on the third that was done without contrast that did not visualize the abscesses/masses. Though that was again done without contrast. No other additional imaging other than some ultrasounds from 2013 which appear to be normal liver at that time. * Patient denies any travel. * DW Dr. Clark who continues to strongly recommend transfer to tertiary facility. Dr. Clark reached out to interventional radiology and the plan is to take the patient down to have an IR placed drain into the largest of the abscesses. * No excepting facilities were available last night though was noted that the [facility] recommended calling back later today. I did reach out to [facility] and they do not have any open beds available but I did provide information about the patient, my callback number as well as Dr. Clark's. Dr. Clark also reached out to [facility] and patient has been accepted. * Continue antibiotics with Vanco and pip-tazo. Abnormal urinalysis: Not consistent with urinary tract infection. Urinary tract infection ruled out. Disposition: Pending transfer to the [facility]. Greater than 50 minutes of which greater than 50% of time was counseling the patient at bedside, reviewing the location of the abscesses with the patient and his mother at bedside. Discussing the likelihood of these being infectious and recommendations of antibiotics as well as additional interventions. Also discussing of the reason for transferring to tertiary facility for more definitive management if necessary. Medications at Discharge Home Medications pantoprazole 40 mg tablet,delayed release 40 mg PO DAILY heart burn 06/05/14 naproxen sodium 375 mg tablet,extended release 24 hr mphase (Naprelan CR) 375 mg PO DAILY 04/12/15 clindamycin HCl 150 mg capsule 300 mg (2 x 150 mg) PO 4X/DAY ##80 02/09/17 naproxen 500 mg tablet 500 mg PO BID PRN #20 tabs 02/09/17 ciprofloxacin HCl 500 mg tablet (Cipro) 500 mg PO BID #20 tabs 01/12/24 ibuprofen 800 mg tablet 800 mg PO Q8H PRN pain #20 tabs 01/12/24 metronidazole 500 mg tablet 500 mg PO Q8H 10 days #30 tabs 01/12/24 Hospital Course Operations - (Percutaneous liver mass drain.) Summary of Care Provided Minutes Spent on Discharge: 60 Hospital Course: Patient presents with abdominal pain but also night sweats and malaise. CAT scan showed multiple masses in the liver that were concerning for abscesses versus metastatic disease. Patient was seen by surgery who recommended transfer. [facility] was contacted but they advise calling back the following day. Patient was seen in conjunction with Dr. Clark who made additional phone calls to [facility] today and got the patient excepted. Given the timing for transfer is unclear, patient underwent a CT-guided percutaneous abscess drain. Proximally 300 cc that was removed. Very concerning that this is infectious. Patient had a CAT scan about a week prior that did not show any of these abscesses but that was done without contrast. Patient was inquiring as to why he would need to be transferred since he had the drain placed, was explained to him that his situation is more complex than just a simple abscess and with this complexity he is at high risk for further complications and being at a tertiary facility, such as [facility], would be most advantageous to properly address his potential needs. He expressed understanding. Patient will be discharged to the [facility] in stable condition. Weight / BMI Weight Weight: 131.2 kg Body Mass Index (BMI) 35.2 ABG / Lab / Microbiology Data 01/20/24 06:01 01/20/24 06:01 Laboratory: Laboratory Results - last 24 hr 01/19/24 16:55: Urine Color [place], Urine Clarity Clear, Urine pH 6.0, Ur Specific [place] 1.020, Urine Protein 30 H, Urine Glucose (UA) Normal, Urine Ketones 5 H, Urine Occult Blood 10 H, Urine Nitrite Positive H, Urine Bilirubin 1 H, Urine Urobilinogen 8 H, Ur Leukocyte Esterase 100 H, Urine RBC 0-5 SEEN, Urine WBC 0-5 SEEN, Ur Squamous Epith Cells 0-5 SEEN, Ur Renal Epithelial Cell 0-5 SEEN, Urine Bacteria 2+, Urine Mucus 3+, Urine Opiates Screen NEGATIVE, Urine Methadone Screen NEGATIVE, Ur Barbiturates Screen NEGATIVE, Ur Phencyclidine Scrn NEGATIVE, Ur Amphetamines Screen NEGATIVE, MDMA (Ecstasy) Screen NEGATIVE, U Benzodiazepines Scrn NEGATIVE, Urine Cocaine Screen NEGATIVE, U Cannabinoids Screen POSITIVE H, Ur Drug Screen Comment 01/19/24 18:20: PT 16.0 H, INR 1.3, APTT 27.3, Magnesium 2.1 01/19/24 18:25: D-Dimer Quant (PE/DVT) 7.72 H* 01/19/24 20:00: Lactic Acid 1.1 01/20/24 06:01: WBC 17.7 H, RBC 4.18 L, Hgb 11.8 L, Hct 35.3 L, MCV 84.4, MCH 28.2, MCHC 33.4, RDW Std Deviation 45.1 H, RDW Coeff of Luther 14.7 H, Plt Count 366, MPV 9.7, Immature Gran % (Auto) 4.000 H, Neut % (Auto) 81.0 H, Lymph % (Auto) 9.9 L, [place] % (Auto) 4.2, Eos % (Auto) 0.2, Baso % (Auto) 0.7, Absolute Neuts (auto) 14.3 H, Absolute Lymphs (auto) 1.74, Nucleated RBC % 0, Sodium 135 L, Potassium 3.9, Chloride 105, Carbon Dioxide 23.0, Anion Gap 7, BUN 9, C reatinine 0.51 L, Estim Creat Clear Calc 279.05, Est GFR (MDRD) Af Amer 230, Est GFR (MDRD) Non-Af 190, BUN/Creatinine Ratio 17.8, Glucose 88, Calcium 7.8 L, T otal Bilirubin 1.20 H, AST 36, ALT 42, Alkaline Phosphatase 146 H, Total Protein 6.3 L, Albumin 1.9 L, Globulin 4.4 H, Albumin/Globulin Ratio 0.4 L, HIV 1&2 Antibody Non-Reactive Microbiology: Microbiology 01/19/24 21:06 Mucosa - Nose SARS-CoV-2, Influenza & RSV (PCR) - Final Radiography Diagnostic Testing: Radiology Impression Abdomen/Pelvis CT 01/19/24 17:37 IMPRESSION: Multiple masses in the liver appear new compared to recent exam suggesting multiple abscesses versus metastatic disease. Colonic diverticulosis. Wall thickening of the sigmoid region with diverticulitis versus mass. Endoscopic correlation recommended. Mild free fluid in the pelvis. Results discussed with Dr. Mccarty. Roberta. : The above Results were Read Back by Marcus Beard MD to Winston Mccarty MD, and understanding confirmed on 01/19/2024 18:24:24 (ET). Electronically Signed: Marcus Beard MD at 18:27 EDT , ADDENDUM: 01/19/24 1834 IMPRESSION: Multiple masses in the liver appear new compared to recent exam suggesting multiple abscesses versus metastatic disease. Colonic diverticulosis. Wall thickening of the sigmoid region with diverticulitis versus mass. Endoscopic correlation recommended. Mild free fluid in the pelvis. Results discussed with Dr. Mccarty. Sadiq.B. : The above Results were Read Back by Marcus Beard MD to Winston Mccarty MD, and understanding confirmed on 01/19/2024 18:24:24 (ET). Electronically Signed: Marcus Beard MD at 18:27 EDT , Chest X-Ray 01/19/24 18:13 IMPRESSION: Left lower lung scarring or atelectasis. Electronically Signed: Marcus Beard MD at 19:02 EDT , Chest CTA 01/19/24 19:08 IMPRESSION: CTA chest examination, without a demonstrated pulmonary embolism or arterial dissection. Lower lung atelectasis. Masses in the liver. Electronically Signed: Marcus Beard MD at 20:36 EDT , D/C Instructions Discharge Diet: No restrictions Meaningful Use Info Meaningful Use Meaningful Use Diagnoses (Choose all that apply): None applicable Ischemic Stroke Statin Dosing Therapy Reference: STATIN DOSE THERAPY REFERENCE: * Patients > 75 years receive moderate or high dose statin therapy. * Patients 75 years or YOUNGER should receive HIGH intensity statin dose unless contraindicated. You will be required to document reason for non-treatment if statin daily dose does not meet guidelines. HIGH DOSE STATIN THERAPY DAILY Atorvastatin > than or = to 40 mg Rosuvastatin > than or = to 20 mg Amlodipine + Atorvastatin > than or = to 2.5/40 mg Ezetimibe + Simvastatin 10/80 mg Simvastatin 80mg Discharge Plan Admission Admit Date/Time: 01/19/24 19:32 Primary Reason for Your Visit: Abdominal masses Attending Provider: Christiano Aponte Primary Care Provider: Juvenal Saleem Consulting Providers: Mark Clark; rBuno Santa; Sj Philip Discharge Orders/Prescriptions Prescriptions: No Action pantoprazole 40 MG tablet 40 mg PO DAILY Patient Comments: acid reflux naproxen sodium [Naprelan CR] 375 MG tablet, ER multiphase 24 hr 375 mg PO DAILY clindamycin HCl 150 MG capsule 300 mg PO 4X/DAY Qty: 80 0RF naproxen 500 MG tablet 500 mg PO BID PRN Qty: 20 0RF ciprofloxacin HCl [Cipro] 500 mg tablet 500 mg PO BID Qty: 20 0RF metronidazole 500 mg tablet 500 mg PO Q8H 10 Days Qty: 30 0RF ibuprofen 800 mg tablet 800 mg PO Q8H PRN (Reason: pain) Qty: 20 0RF Referrals / Follow Up: Juvenal Saleem MD [Primary Care Provider] - Disposition Disposition (needs filled in before D/C Order can be placed): Acute Care Hospital Charges/Coding Visit Charges Inpatient E&M: 32768 Disch Hosp >30min
--- NOTE | 2024-01-20 17:45 | NURSING ---
Called report to Sandra TAVERAS at [facility]
--- NOTE | 2024-01-20 23:01 | NURSING ---
Transport picked pt up @ 2020
== END 2024-01-20 20:20 | disposition short-term general hospital (02) | DRG 442 ==
LOC: ED 19:05 → PCU 22:51
PROVIDERS: Internal Medicine Infectious Disease; Admitting Provider Internal Medicine; Emergency Provider Emergency Medicine; PCP Family Medicine
DX: K75.0 Abscess of liver (principal); K57.32 Diverticulitis of large intestine without perforation or abscess without bleeding; E88.09 Other disorders of plasma-protein metabolism, not elsewhere classified; I10 Essential (primary) hypertension; F32.A Depression, unspecified; K21.9 Gastro-esophageal reflux disease without esophagitis; F17.210 Nicotine dependence, cigarettes, uncomplicated; F41.9 Anxiety disorder, unspecified; R79.1 Abnormal coagulation profile; R82.71 Bacteriuria; Z79.85 Long-term (current) use of injectable non-insulin antidiabetic drugs; Z79.899 Other long term (current) drug therapy; Z86.718 Personal history of other venous thrombosis and embolism; Z86.711 Personal history of pulmonary embolism
CPT/HCPCS: 71045; 71275; 74177; 75989; 80053; 80307; 81001; 83605; 83735; 85025; 85379; 85610; 85730; 86703; 87040; 87070; 87075; 87077; 87086; 87205; 87631; 93005; 94668; 99156; 99252; 99284; J7030; J7040; J7050; Q9967; A4216; G0463; J2405

== ENCOUNTER 2024-04-12 12:55 | Emergency (ER) | payer BC, SELFPAY ==
[2024-04-12 12:55] VITALS: BP 149/100; PULSE 95; RESP 16; TEMP 36.4; O2SAT 98; BMI 35.5
--- NOTE | 2024-04-12 14:38 | EDS_ITS ---
HPI History of Present Illness Chief Complaint: Other, Pain/Inj PFSH PFSH Medical History (Updated 04/12/24 @ 18:[address] Shantanu Paulino, DO) Acute diverticulitis Leukocytosis Abscess of liver Hx of blood clots History of diverticulitis Venous stasis dermatitis of left lower extremity Post-thrombotic syndrome of left lower extremity Peripheral vascular complications Peripheral vascular disease Obesity Tobacco abuse Swelling of lower extremity History of MRSA infection Pain, lower extremity Tobacco user Opioid dependence on agonist therapy Depression GERD (gastroesophageal reflux disease) Hypertension Peripheral vascular disease of extremity Lymphedema of both lower extremities History of pulmonary embolism Home Medications ?Medication ?Instructions ?Recorded ?Last Taken ?Type pantoprazole 40 mg tablet,delayed 40 mg PO DAILY heart burn 06/05/14 Unknown History release naproxen sodium 375 mg 375 mg PO DAILY 04/12/15 Unknown History tablet,extended release 24 hr mphase (Naprelan CR) clindamycin HCl 150 mg capsule 300 mg (2 x 150 mg) PO 4X/DAY ##80 02/09/17 Unknown Rx naproxen 500 mg tablet 500 mg PO BID PRN #20 tabs 02/09/17 Unknown Rx ciprofloxacin HCl 500 mg tablet 500 mg PO BID #20 tabs 01/12/24 Unknown Rx (Cipro) ibuprofen 800 mg tablet 800 mg PO Q8H PRN pain #20 tabs 01/12/24 Unknown Rx metronidazole 500 mg tablet 500 mg PO Q8H 10 days #30 tabs 01/12/24 Unknown Rx apixaban 5 mg (74 tabs) tablets in See Rx Instructions PO .COMPLEX 04/12/24 Unknown Rx a dose pack (Eliquis DVT-PE Treat #74 tabs 30D Start) Allergy/AdvReac Type Severity Reaction Status Date / Time sulfamethoxazole (From AdvReac Rash Verified 04/12/24 12:55 Bactrim) trimethoprim (From Bactrim) AdvReac Rash Verified 04/12/24 12:55 Social History Smoking Status: Heavy Smoker (>10/day) EXAM Physical Exam Const Vital Signs: 04/12/24 12:55 04/12/24 15:00 04/12/24 15:13 Temperature 97.5 F L Temperature Source Temporal Pulse Rate 95 83 Respiratory Rate 16 Respiratory Effort Normal Non-Labored Respiratory Pattern Normal Blood Pressure 149/100 H Blood Pressure Mean 116 Pulse Ox 98 96 Oxygen Delivery Method Room Air Room Air 04/12/24 17:31 Temperature Temperature Source Pulse Rate 81 Respiratory Rate Respiratory Effort Respiratory Pattern Blood Pressure Blood Pressure Mean Pulse Ox 94 Oxygen Delivery Method Room Air [facility] Narrative Medical decision making narrative: HISTORY OF PRESENT ILLNESS: 43-year-old male presents with concern for right-sided pain with movement and activity. Is concerned about a hernia as he has a swollen groin. He further states for 2 days he has had swelling in his left groin and radiates down his left leg. No testicular pain. No vomiting. No fever. No nausea. No diarrhea no constipation. Notes history of acute diverticulitis with abscesses to his liver. No chest pain or shortness of breath. REVIEW OF SYSTEMS: Pertinent positives: Groin pain Pertinent negatives: As per HPI PHYSICAL EXAM: Nursing triage notes reviewed, Vital signs reviewed Constitutional: please see mdm HENT: MMM Eyes: Pupils equal round and reactive to light, Extraocular muscles intact Neck: No stridor, no JVD, full neck ROM Lungs: Clear to auscultation, No wheezing or rales. No increased work of breathing, no conversational dyspnea, no accessory muscle use, no nasal flaring. No respiratory distress noted Heart: Regular rate and rhythm, No murmurs, No rubs and No gallops, 2+ distal pulses (radial, femoral, posterior tibial) in all extremities Abdomen: Soft, there is no tenderness, rigidity, rebound or guarding, no obvious peritoneal signs, no palpable pulsatile abdominal masses, no auscultated abdominal bruit : No CVAT Extremities: No edema Neuro: No focal neurological deficits, cranial nerves II through XII intact, 5/5 strength in all extremities. Intact sensation to light touch in all extremities, 2+ reflexes bilateral patella tendons. Normal gait. No ataxia. Skin: No rash or lesions noted MEDICAL DECISION MAKING: Chief Complaint: Groin pain External records reviewed: Primary reviewed: CT scan abdomen pelvis from January 2024 Showed liver masses, no hernia Factors affecting care: history of diverticulitis, liver abscesses, GERD, hypertension, lymphedema, DVT PE, Social determinants of health: tobacco abuse History obtained from others: none Consults: none [facility] Narrative: The patient was hemodynamically stable, afebrile and nontoxic-appearing. Exam with left-sided herniation that is difficult to reduce with overlying skin redness. No testicular tenderness. Abdomen otherwise soft and nontender patient appears in no acute distress. I considered the following differential diagnosis: Orchitis, epididymitis, ovarian torsion, diverticulitis, inguinal hernia, incarcerated or strangulated hernia, abdominal perforation obstruction, mesenteric ischemia, UTI, pyelonephritis I obtained a broad lab and imaging workup to further elucidate etiology of the patient's complaints Initially treated the patient 1 L normal saline, 4 mg of IV Zofran, 50 mg IV Toradol, 4 mg IV morphine for symptomatic control. ALL IMAGES (IF OBTAINED) HAVE BEEN PERSONALLY REVIEWED AND INTERPRETED BY MYSELF. CBC with leukocytosis suggestive of systemic summation, no anemia or thrombocytopenia BMP without evidence of significant electrolyte abnormalities, no anion gap, no acute kidney injury. Lactate is wnl indicating no end-organ hypoperfusion and/or hypoxia. LFTs show no evidence of hepatobiliary pathology. Lipase is wnl indicating no pancreatic inflammation. CT scan of the abdomen pelvis shows diverticular disease but no evidence of acute diverticulitis, no evidence of hernia. CT further showed venous congestion concerning for DVT recommended DVT ultrasound. Duplex ultrasound was obtained Lactate is wnl indicating no end-organ hypoperfusion and/or hypoxia. Urinalysis shows no evidence of urinary inflammation suggestive of UTI DVT study showed evidence of acute DVT Given evidence of acute DVT we will start the patient Eliquis. Patient no chest pain, shortness breath hypoxia hypotension to suggest PE. Will give prescription for starter pack for Eliquis and have him follow his primary care physician for further outpatient evaluation and treatment. Strict return precautions were discussed. The patient and/or family, caregivers express understanding. The patient and/or family, caregivers agrees with the plan. Shared decision making: I will have a discussion with the patient and or visitors regarding risk/benefits of further testing or admission. They will be made aware of of the risk/benefits inherent in this decision they will be given the opportunity to voice understanding. Total critical care time today provided was at least 0 minutes. This excludes separately billable procedures. Critical care time (if documented) is secondary to the patient having high probability of clinically significant/life threatening deterioration in the patient's condition which required my urgent intervention. Impression: 1. Groin pain 2. Acute DVT Dispo: Discharge home This note was generated with Fluentifyation software. It may contain incorrect words, spelling, and punctuation that were not noted in review of the chart prior to signing. Lab Data Labs: Laboratory Results - last 24 hr 04/12/24 04/12/24 15:06 16:33 WBC 11.1 H RBC 4.92 Hgb 14.0 Hct 42.6 MCV 86.6 MCH 28.5 MCHC 32.9 RDW Std Deviation 47.3 H RDW Coeff of Luther 14.9 H Plt Count 227 MPV 9.5 Immature Gran % (Auto) 0.400 Neut % (Auto) 76.6 H Lymph % (Auto) 15.7 L [place] % (Auto) 4.8 Eos % (Auto) 1.9 Baso % (Auto) 0.6 Absolute Neuts (auto) 8.5 H Absolute Lymphs (auto) 1.74 Nucleated RBC % 0 Sodium 138 Potassium 3.8 Chloride 107 Carbon Dioxide 25.0 Anion Gap 6 BUN 15 Creatinine 0.61 L Estim Creat Clear Calc 234.38 Est GFR (MDRD) Af Amer 187 Est GFR (MDRD) Non-Af 154 BUN/Creatinine Ratio 24.7 H Glucose 90 Lactic Acid 0.7 Calcium 9.0 Total Bilirubin 0.50 AST 10 L ALT 18 Alkaline Phosphatase 106 Total Protein 7.4 Albumin 3.3 Globulin 4.1 Albumin/Globulin Ratio 0.8 L Lipase 45 Urine Color Yellow Urine Clarity Clear Urine pH 6.5 Ur Specific [place] 1.010 Urine Protein Negative Urine Glucose (UA) Normal Urine Ketones Negative Urine Occult Blood Negative Urine Nitrite Negative Urine Bilirubin Negative Urine Urobilinogen Normal Ur Leukocyte Esterase Negative Urine RBC 0 SEEN Urine WBC 0 SEEN Ur Squamous Epith Cells 0 SEEN Urine Bacteria 0 SEEN Urine Mucus 0 SEEN Radiography Diagnostic Testing: Clinical Impression(s) from Imaging Studies Abdomen/Pelvis CT 04/12/24 14:58 IMPRESSION: Diverticular changes of the descending and sigmoid colon without definitive evidence for acute diverticulitis No significant inguinal hernia or evidence for incarceration There are increased venous collaterals in left groin and medial thigh stranding in the fat possibly inflammatory. Ultrasound of the left groin would be helpful to exclude the possibility of superficial or deep venous thrombosis Electronically Signed: Vincent Campos MD at 17:35 EDT , Venous Duplex 04/12/24 17:40 IMPRESSION: Findings consistent with acute deep venous thrombosis in the left common femoral common femoral and greater saphenous Junction and proximal femoral veins. Probable chronic DVT in the right popliteal and possibly left mid superficial femoral Electronically Signed: Vincent Campos MD at 19:03 EDT , ADDENDUM: 04/12/24 1918 IMPRESSION: Findings consistent with acute deep venous thrombosis in the left common femoral common femoral and greater saphenous Junction and proximal femoral veins. Probable chronic DVT in the right popliteal and possibly left mid superficial femoral N.B. : The above Results were Read Back by Vincent Campos MD to Shantanu Paulino DO, and understanding confirmed on 04/12/2024 19:12:04 (ET). Electronically Signed: Vincent Campos MD at 19:03 EDT , Discharge Plan Triage Chief Complaint: Other, Pain/Inj ED Provider: Shantanu Paulino Dx/Rx/DC Orders Clinical Impression: Acute deep vein thrombosis (DVT) Instructions: DVT Dc Prescriptions: New Eliquis DVT-PE Treat 30D Start 5 mg (74 tabs) tablets,dose pack See Rx Instructions .ROUTE .COMPLEX Qty: 74 0RF Rx Instructions: orally per package directions No Action pantoprazole 40 MG tablet 40 mg PO DAILY Patient Comments: acid reflux naproxen sodium [Naprelan CR] 375 MG tablet, ER multiphase 24 hr 375 mg PO DAILY clindamycin HCl 150 MG capsule 300 mg PO 4X/DAY Qty: 80 0RF naproxen 500 MG tablet 500 mg PO BID PRN Qty: 20 0RF ciprofloxacin HCl [Cipro] 500 mg tablet 500 mg PO BID Qty: 20 0RF metronidazole 500 mg tablet 500 mg PO Q8H 10 Days Qty: 30 0RF ibuprofen 800 mg tablet 800 mg PO Q8H PRN (Reason: pain) Qty: 20 0RF Primary Care Provider: Juvenal Saleem Referrals: Juvenal Saleem MD [Primary Care Provider] - Activity Restrictions/Additional Instructions: Thank you for trusting us with your care today! You have been diagnosed with acute DVT. Please take Tylenol (2 pills, 650 mg), every 6 hours as needed for pain and fever control. Please refrain from using nonsteroidal anti-inflammatory drugs including ibuprofen, Motrin, Aleve, naproxen Please return to the emergency department if your symptoms change or worsen. Please follow with your primary care physician for further outpatient evaluation and management. Print Language: Upper Sorbian Disposition Disposition: Home, Self Care Discharge Date/Time: 04/12/24 19:02
--- NOTE | 2024-04-12 14:58 | CT_ITS ---
STUDY: CT ABDOMEN AND PELVIS WITH CONTRAST REASON FOR EXAM: Male, 43 years old. left sided inguinal hernia r/o stragulation -- IV PO Contrast RADIATION DOSAGE (If Supplied By Facility): CTDIvol = ( 15.39 ) mGy, DLP = ( 1555.11 ) mGycm TECHNIQUE: Transaxial images were obtained from the dome of the diaphragm to the symphysis pubis without oral contrast. IV 100mL Isovue-300 was administered. Sagittal and coronal images were reconstructed. Individualized dose optimization techniques were used for this CT. COMPARISON: None. FINDINGS: There is mild atelectasis within the dependent portion of both lower lobes The visualized portions of the heart are within normal limits. Liver is fatty infiltrated without mass or bile duct dilatation. Normal gallbladder and extrahepatic biliary system. Normal spleen. Normal pancreas. Normal bilateral adrenal glands. Normal right kidney. Normal left kidney. Normal visualized stomach. Normal small intestine. Diverticular disease of the descending and sigmoid colon.. There is focal segmental thickening of the bowel spaulding and narrowing of the lumen which may be due to chronic diverticular changes..... The appendix is visualized and appears normal. Normal abdominal aorta. Normal inferior vena cava. Normal retroperitoneum. Normal urinary bladder. Normal abdominal wall. Postop change status post open reduction internal fixation left hip fracture.. Incidental finding of increased vascularity within the left medial thigh mild stranding in the subcutaneous fat. Possibility of venous thrombosis not entirely excluded. Doppler ultrasound of the groin would be useful for further evaluation CT/Abdomen/Pelvis WITH Contrast IMPRESSION: Diverticular changes of the descending and sigmoid colon without definitive evidence for acute diverticulitis No significant inguinal hernia or evidence for incarceration There are increased venous collaterals in left groin and medial thigh stranding in the fat possibly inflammatory. Ultrasound of the left groin would be helpful to exclude the possibility of superficial or deep venous thrombosis Electronically Signed: Vincent Campos MD at 17:35 EDT ,
[2024-04-12] MEDS: Ondansetron 4 MG/2 ML Vial IV (15:07)
[2024-04-12] MEDS: Ketorolac 15 MG/ML Vial IV ×2 (15:07→18:38)
[2024-04-12] MEDS: Morphine 4 MG/ML Syringe IV ×2 (15:07→18:42)
[2024-04-12] MEDS: 0.9% Normal Saline (1000mL) 1,000 ML 999 ML IV (15:07)
[2024-04-12 15:13] VITALS: PULSE 83; O2SAT 96
[2024-04-12 15:22] LABS: Absolute Lymphocyte Count 1.74 X10^3/uL (0.83-4.51); Absolute Neutrophil Count 8.5 X10^3/uL (2.0-7.7); Basophil# 0.07 X10^3/uL; Basophil% 0.6 % (0-1); Eosinophil# 0.21 X10^3/uL; Eosinophils% 1.9 % (0-5); Hematocrit 42.6 % (40-54); Lymphocyte # 1.74 X10^3/ul (0.83-4.51); Lymphocyte % 15.7 % (19-41); Mean Corp Hgb Conc 32.9 g/dL (32-36); Mean Corpuscular Hgb 28.5 pg (27.0-32.0); Mean Corpuscular Volume 86.6 fL (80-94); Mean Platelet Vol. 9.5 fl (6.2-12.0); Monocyte# 0.53 X10^3/uL; Monocyte% 4.8 % (0-10); NRBC Flagged by Analyzer 0 % (0-5); Neutrophil # 8.52 X10^3/uL (2.7-7.7); Neutrophil % 76.6 % (47-70); Platelet Count 227 K/mm3 (150-450); RBC Distribution Width CV 14.9 % (11.6-14.6); RBC Distribution Width SD 47.3 fl (35.1-43.9); Red Blood Count 4.92 M/mm3 (4.6-6.2); White Blood Count 11.1 K/mm3 (4.4-11.0)
[2024-04-12 15:39] LABS: ALB/GLOB Ratio 0.8 RATIO (0.9-2.4); AST(SGOT) 10 U/L (15-37); Alanine Aminotransfer ALT/SGPT 18 U/L (16-61); Albumin, Serum 3.3 g/dL (3.2-5.0); Alkaline Phosphatase 106 U/L (45-117); Anion Gap 6 (5-15); BUN 15 mg/dL (7-18); BUN/Creat Ratio 24.7 RATIO (10-20); Chloride 107 mmol/L (98-107); Creatinine, Serum 0.61 mg/dL (0.70-1.30); EST Glomerular Filtration Rate 154 mL/min (>60); Est Glom Filt Rate - Afr Amer 187 mL/min (>60); Estimated Creatinine Clearance 234.38 ml/min; Globulin 4.1 g/dL (2.2-4.2); Glucose 90 mg/dL (74-106); Lipase 45 U/L (13-75); Potassium 3.8 mmol/L (3.5-5.1); Protein, Total 7.4 g/dL (6.4-8.2); Sodium Level 138 mmol/L (136-145)
[2024-04-12 16:08] LABS: Lactic Acid 0.7 mmol/L (0.4-1.9)
[2024-04-12 16:38] LABS: Bacteria 0 SEEN /hpf (None Seen); Mucous, Urine 0 SEEN /hpf (<or=2+); Red Blood Cells-Urine 0 SEEN /hpf (0-5); Squamous Epithelial Cells - UA 0 SEEN /hpf (0-5); White Blood Cells 0 SEEN /hpf (0-5)
[2024-04-12 16:46] LABS: Color, Urine Yellow (Yellow); Glucose, Dipstick Normal (Normal); Ketone-Dipstick Negative (Negative); Leukocyte Esterase-Dipstick Negative /ul (Negative); Nitrite-Dipstick Negative (Negative); Occult Blood-Urine Negative /ul (Negative); Protein-Dipstick Negative (Negative); Urine Bilirubin Dipstick Negative (Negative); Urine Clarity Clear (Clear); Urine Urobilinogen Normal (Normal); Urine pH 6.5 (5.0 - 8.0)
--- NOTE | 2024-04-12 16:48 | ED.RN ---
Patient transported to CT
[2024-04-12 17:31] VITALS: PULSE 81; O2SAT 94
--- NOTE | 2024-04-12 17:40 | US_ITS ---
We are attempting to reach an attending provider to discuss findings. An addendum with communication details will be sent when the communication is complete. STUDY: VENOUS DOPPLER ULTRASOUND - BILATERAL LOWER EXTREMITIES REASON FOR EXAM: Male, 43 years old. -- SWELLING TECHNIQUE: Ultrasound evaluation of the deep vein system to include flynn-scale imaging and compression was performed. Flynn-scale imaging and Doppler sonographic evaluation, including duplex spectral analysis and qualitative color flow sonography, was performed. COMPARISON: None. FINDINGS: RIGHT LEG Common Femoral Vein: Normal compression, spontaneity and augmentation. Normal color Doppler. Common Femoral Vein/Greater Saphenous Junction: Normal compression, spontaneity and augmentation. Normal color Doppler. Deep Femoral Vein: Normal compression, spontaneity and augmentation. Normal color Doppler. Femoral Proximal: Normal compression, spontaneity and augmentation. Normal color Doppler. Femoral Middle: Normal compression, spontaneity and augmentation. Normal color Doppler. Femoral Distal: Normal compression, spontaneity and augmentation. Normal color Doppler. Popliteal Vein: Normal compression, spontaneity and augmentation. Normal color Doppler. Posterior Tibial Vein: Compressible with internal echoes. Peroneal Vein: Normal compression, spontaneity and augmentation. Normal color Doppler. LEFT LEG Common Femoral Vein: Noncompressible with internal echoes. Common Femoral Vein/Greater Saphenous Junction: Noncompressible with internal echoes Deep Femoral Vein: Normal compression, spontaneity and augmentation. Normal color Doppler. Femoral Proximal: Noncompressible with internal echoes. Femoral Middle: Compressible with internal echoes. Femoral Distal: Normal compression, spontaneity and augmentation. Normal color Doppler. Popliteal Vein: Normal compression, spontaneity and augmentation. Normal color Doppler. Posterior Tibial Vein: Normal compression, spontaneity and augmentation. Normal color Doppler. Peroneal Vein: Normal compression, spontaneity and augmentation. Normal color Doppler. US/Venous Duplex Imag/Sukhdeep Extrem IMPRESSION: Findings consistent with acute deep venous thrombosis in the left common femoral common femoral and greater saphenous Junction and proximal femoral veins. Probable chronic DVT in the right popliteal and possibly left mid superficial femoral Electronically Signed: Vincent Campos MD at 19:03 EDT ,
--- NOTE | 2024-04-12 18:26 | ED.RN ---
Patient returned from imaging
[2024-04-12] MEDS: APIXABAN 5 MG TABLET 10 MG PO (18:56)
== END 2024-04-12 19:02 | disposition home or self-care (01) ==
PROVIDERS: Emergency Provider Emergency Medicine; PCP Family Medicine; Visit Provider Emergency Medicine
DX: I82.409 Acute embolism and thrombosis of unspecified deep veins of unspecified lower extremity (principal); F17.200 Nicotine dependence, unspecified, uncomplicated; Z86.711 Personal history of pulmonary embolism
CPT/HCPCS: 74177; 80053; 81001; 83605; 83690; 85025; 93970; 96361; 96374; 96375; 96376; 99283; J7030; Q9967; A4216; J2405

== ENCOUNTER 2024-04-14 18:17 | Emergency (ER) | payer BC, SELFPAY ==
[2024-04-14 18:18] VITALS: BP 149/99; PULSE 106; RESP 16; TEMP 36.2; O2SAT 97; BMI 35.4
--- NOTE | 2024-04-14 19:50 | EDS_ITS ---
HPI History of Present Illness Chief Complaint: Lower Extremity Injury Informant: patient Onset/Context/Timing Onset: Days Context: Gradual Onset Timing: Continuous Quality: Sharp, burning Location: Suprapubic area Worsened by: Walking Relieved by: Nothing Narrative Narrative: Patient presents with redness and swelling to his suprapubic area that has been getting worse over the past couple days. Patient states he was seen here 2 days ago and was diagnosed with a DVT. Patient was given a dose of Eliquis here. Patient states he was unable to fill his prescription for Eliquis until today. Patient states he picked up his prescription today but did not take any of it yet. Patient states he contacted his primary care physician who referred him to the emergency department. Patient states he was told he would need to be admitted to the hospital for IV anticoagulation. Patient denies any fevers or chills. Patient describes the pain as sharp, burning, and tightness. Patient states it is mainly over the suprapubic area. Patient states it is worse with walking. Patient denies any fevers or chills. Patient denies any discharge or drainage. [facility] Medical History Acute diverticulitis Leukocytosis Abscess of liver Hx of blood clots History of diverticulitis Venous stasis dermatitis of left lower extremity Post-thrombotic syndrome of left lower extremity Peripheral vascular complications Peripheral vascular disease Obesity Tobacco abuse Swelling of lower extremity History of MRSA infection Pain, lower extremity Tobacco user Opioid dependence on agonist therapy Depression GERD (gastroesophageal reflux disease) Hypertension Peripheral vascular disease of extremity Lymphedema of both lower extremities History of pulmonary embolism Home Medications ?Medication ?Instructions ?Recorded ?Last Taken ?Type pantoprazole 40 mg tablet,delayed 40 mg PO DAILY heart burn 06/05/14 Unknown History release apixaban 5 mg (74 tabs) tablets in See Rx Instructions PO .COMPLEX 04/12/24 Unknown Rx a dose pack (Eliquis DVT-PE Treat #74 tabs 30D Start) amoxicillin 875 mg-potassium 875 mg PO Q12H #20 TABLETS 04/14/24 Unknown Rx clavulanate 125 mg tablet dextroamphetamine-amphetamine 30 1 tab PO DAILY 04/14/24 Unknown History mg tablet lisinopril 10 mg tablet 10 mg PO DAILY 04/14/24 Unknown History sertraline 50 mg tablet 50 mg PO DAILY 04/14/24 Unknown History Allergy/AdvReac Type Severity Reaction Status Date / Time sulfamethoxazole (From AdvReac Rash Verified 04/14/24 18:21 Bactrim) trimethoprim (From Bactrim) AdvReac Rash Verified 04/14/24 18:21 Social History Smoking Status: Heavy Smoker (>10/day) ROS ROS ED Constitutional Constitutional ED: Denies chills or fever(s) Eyes Eyes: Denies blurry vision or change in vision ENT ENT ED: Denies rhinorrhea or sore throat Cardiovascular Cardiovascular: Denies chest pain or palpitations Respiratory/Chest Respiratory/Chest: Denies cough or dyspnea Gastrointestinal Gastrointestinal: Denies nausea or vomiting Genitourinary Genitourinary ED: Denies dysuria or hematuria Musculoskeletal Musculoskeletal: Denies back pain or neck pain Integumentary Reports rash; Denies abscess Neurologic Neurologic: Denies headache(s) or weakness Allergic/Immunologic Allergic/Immunologic ED: Denies mouth swelling or urticaria EXAM Physical Exam Const Vital Signs: 04/14/24 18:18 04/14/24 20:18 Temperature 97.2 F L Temperature Source Oral Pulse Rate 106 H 87 Respiratory Rate 16 18 Blood Pressure 149/99 H 136/88 H Blood Pressure Mean 115 104 Pulse Ox 97 93 Oxygen Delivery Method Room Air Room Air Positive well nourished and well developed General Appearance ED: well developed and NAD HEENT Reports moist mucous membranes Neck supple and no JVD Resp normal respiratory effort and clear to auscultation bilaterally Cardio regular rhythm Rate: tachycardic GI GI Narrative: There is erythema and mild warmth over the suprapubic area. There is tenderness to palpation over the area. There is no fluctuance or evidence of any abscess. There is some mild induration. There is no discharge or drainage. Palpation: soft Neuro oriented x3, CN's II-XII intact bilaterally and no sensory deficits noted Sensorium / Orientation: alert Motor Exam: strength 5/5 throughout MDM MDM MDM Narrative Medical decision making narrative: Differential diagnosis includes cellulitis, abscess, sepsis, and DVT. CBC will be obtained to assess for leukocytosis and anemia. Basic metabolic profile will be obtained to assess for electrolyte abnormality and renal function. PT with INR and PTT will be obtained to assess for coagulopathy. Lactate will be obtained to assess for sepsis. Blood culture will be obtained to assess for sepsis. Urinalysis will be obtained to assess for urinary tract infection and hematuria. CT scan of the abdomen pelvis will be obtained to assess for abscess and cellulitis. Lab Data Attestation: I reviewed the patient's lab results. Lab results narrative: CBC was reviewed. There is a mild leukocytosis of 14.1. The remainder is within normal limits. PT was INR and PTT were reviewed and were within normal limits. Basic metabolic profile was reviewed and was within normal limits. Serum lactate was reviewed and was normal at 1.3. Urinalysis was reviewed and was essentially within normal limits. Labs: Laboratory Results - last 24 hr 04/14/24 20:10 WBC 14.1 H RBC 5.13 Hgb 14.4 Hct 44.8 MCV 87.3 MCH 28.1 MCHC 32.1 RDW Std Deviation 47.1 H RDW Coeff of Luther 14.6 Plt Count 295 MPV 9.3 Immature Gran % (Auto) 0.500 Neut % (Auto) 79.7 H Lymph % (Auto) 12.9 L [place] % (Auto) 4.6 Eos % (Auto) 1.8 Baso % (Auto) 0.5 Absolute Neuts (auto) 11.3 H Absolute Lymphs (auto) 1.83 Nucleated RBC % 0 PT 13.2 INR 1.0 APTT 25.4 Sodium 137 Potassium 3.6 Chloride 105 Carbon Dioxide 26.0 Anion Gap 6 BUN 13 Creatinine 0.71 Estim Creat Clear Calc 200.91 Est GFR (MDRD) Af Amer 157 Est GFR (MDRD) Non-Af 130 BUN/Creatinine Ratio 18.4 Glucose 106 Lactic Acid 1.3 Calcium 9.3 Urine Color Yellow Urine Clarity Clear Urine pH 6.5 Ur Specific [place] 1.010 Urine Protein 15 H Urine Glucose (UA) Normal Urine Ketones Negative Urine Occult Blood Negative Urine Nitrite Negative Urine Bilirubin Negative Urine Urobilinogen 1 H Ur Leukocyte Esterase 25 H Urine RBC 0 SEEN Urine WBC 0 SEEN Ur Squamous Epith Cells 0 SEEN Urine Bacteria 1+ Urine Mucus 1+ Radiography Diagnostic Testing: Clinical Impression(s) from Imaging Studies Abdomen/Pelvis CT 04/14/24 19:51 IMPRESSION: Grossly stable appearance of acute sigmoid diverticulitis. No focal fluid collection or free air. Redemonstration of left inguinal dilated collateral veins secondary to known deep venous thrombosis. Electronically Signed: Ethan Mclain MD at 22:11 EDT , CT scan of the abdomen pelvis was obtained. There is stable diverticulitis. Th ere is no free air or abscess. There is no subcutaneous abscess noted. There is left inguinal dilated collateral veins secondary to known DVT. This was interpreted by the radiologist and was also independently reviewed by myself. Treatment and Re-Evaluation :: Patient was given a dose of Unasyn here. Patient was advised of his findings. Patient was given his nighttime dose of Eliquis here. Patient was given a prescription for Augmentin. Patient was instructed to follow-up with his primary care physician in 5 to 7 days. Patient was instructed to return if worse in any way. Patient understood and was agreeable with the plan. All questions were answered. Discharge Plan Triage Chief Complaint: Lower Extremity Injury ED Provider: Christiano Whatley Dx/Rx/DC Orders Clinical Impression: Cellulitis of suprapubic region, Acute diverticulitis, Acute deep vein thrombosis (DVT) Instructions: ED Cellulitis, ED Diverticulitis, ED Deep Vein Thrombosis (DVT) Prescriptions: New amoxicillin-pot clavulanate 875-125 mg tablet 875 mg PO Q12H Qty: 20 0RF No Action pantoprazole 40 MG tablet 40 mg PO DAILY Patient Comments: acid reflux dextroamphetamine-amphetamine 30 mg tablet 1 tab PO DAILY lisinopril 10 mg tablet 10 mg PO DAILY sertraline 50 mg tablet 50 mg PO DAILY Eliquis DVT-PE Treat 30D Start 5 mg (74 tabs) tablets,dose pack See Rx Instructions .ROUTE .COMPLEX Qty: 74 0RF Rx Instructions: orally per package directions Primary Care Provider: Juvenal Saleem Referrals: Juvenal Saleem MD [Primary Care Provider] - 5-7 Days Print Language: Japanese Disposition Disposition: Home, Self Care
--- NOTE | 2024-04-14 19:51 | CT_ITS ---
INDICATION: Abdominal pain EXAMINATION: CT Abdomen And Pelvis W/ Contrast Injection TECHNIQUE: Helically acquired images were obtained of the abdomen and pelvis after IV contrast. A radiation dose optimization technique was used for this scan. IV Contrast dosage and agent: IV 100mL Isovue-370 Oral contrast: None. COMPARISON: 04/12/2024. FINDINGS: Visualized lung bases: Unremarkable Liver: Diffusely hypodense consistent with fatty liver. Gallbladder: Unremarkable Spleen: Unremarkable Pancreas: Unremarkable Adrenal Glands: Unremarkable Kidneys: Unremarkable Vasculature: Redemonstration of left inguinal dilated collateral veins secondary to known deep venous thrombosis. GI Tract: Scattered colonic diverticula. Redemonstration of a short segment wall thickening of the sigmoid colon with surrounding mesenteric fat stranding. Lymphadenopathy: None Peritoneum: No ascites. Bladder: Unremarkable Reproductive organs: Unremarkable Bones/Soft tissues: No suspicious osseous or soft tissue lesions CT/Abdomen/Pelvis W IV Cont ONLY IMPRESSION: Grossly stable appearance of acute sigmoid diverticulitis. No focal fluid collection or free air. Redemonstration of left inguinal dilated collateral veins secondary to known deep venous thrombosis. Electronically Signed: Ethan Mclain MD at 22:11 EDT ,
[2024-04-14 20:14] LABS: Red Blood Cells-Urine 0 SEEN /hpf (0-5); Squamous Epithelial Cells - UA 0 SEEN /hpf (0-5); White Blood Cells 0 SEEN /hpf (0-5)
[2024-04-14 20:16] LABS: Absolute Lymphocyte Count 1.83 X10^3/uL (0.83-4.51); Absolute Neutrophil Count 11.3 X10^3/uL (2.0-7.7); Basophil# 0.07 X10^3/uL; Basophil% 0.5 % (0-1); Eosinophil# 0.25 X10^3/uL; Eosinophils% 1.8 % (0-5); Hematocrit 44.8 % (40-54); Hemoglobin 14.4 g/dL (13.0-16.5); Lymphocyte # 1.83 X10^3/ul (0.83-4.51); Lymphocyte % 12.9 % (19-41); Mean Corp Hgb Conc 32.1 g/dL (32-36); Mean Corpuscular Hgb 28.1 pg (27.0-32.0); Mean Corpuscular Volume 87.3 fL (80-94); Mean Platelet Vol. 9.3 fl (6.2-12.0); Monocyte# 0.65 X10^3/uL; Monocyte% 4.6 % (0-10); NRBC Flagged by Analyzer 0 % (0-5); Neutrophil # 11.27 X10^3/uL (2.7-7.7); Neutrophil % 79.7 % (47-70); Platelet Count 295 K/mm3 (150-450); RBC Distribution Width CV 14.6 % (11.6-14.6); RBC Distribution Width SD 47.1 fl (35.1-43.9); Red Blood Count 5.13 M/mm3 (4.6-6.2); White Blood Count 14.1 K/mm3 (4.4-11.0)
[2024-04-14 20:18] VITALS: BP 136/88; PULSE 87; RESP 18; O2SAT 93
[2024-04-14 20:39] LABS: Color, Urine Yellow (Yellow); Glucose, Dipstick Normal (Normal); Ketone-Dipstick Negative (Negative); Leukocyte Esterase-Dipstick 25 /ul (Negative); Nitrite-Dipstick Negative (Negative); Occult Blood-Urine Negative /ul (Negative); Protein-Dipstick 15 mg/dl (Negative); Urine Bilirubin Dipstick Negative (Negative); Urine Clarity Clear (Clear); Urine Urobilinogen 1 mg/dl (Normal); Urine pH 6.5 (5.0 - 8.0)
[2024-04-14 20:51] LABS: Bacteria 1+ /hpf (None Seen); Mucous, Urine 1+ /hpf (<or=2+)
[2024-04-14 20:52] LABS: Partial Thromboplast Time 25.4 Seconds (24.1-36.2); Prothrombin Time (Protime)PT. 13.2 SECONDS (11.7-14.9)
[2024-04-14 21:00] LABS: Anion Gap 6 (5-15); BUN 13 mg/dL (7-18); BUN/Creat Ratio 18.4 RATIO (10-20); Calcium,Total 9.3 mg/dL (8.5-10.1); Chloride 105 mmol/L (98-107); Creatinine, Serum 0.71 mg/dL (0.70-1.30); EST Glomerular Filtration Rate 130 mL/min (>60); Est Glom Filt Rate - Afr Amer 157 mL/min (>60); Estimated Creatinine Clearance 200.91 ml/min; Glucose 106 mg/dL (74-106); Potassium 3.6 mmol/L (3.5-5.1); Sodium Level 137 mmol/L (136-145)
[2024-04-14] MEDS: Morphine 4 MG/ML Syringe IV (21:00)
[2024-04-14 21:04] LABS: Lactic Acid 1.3 mmol/L (0.4-1.9)
[2024-04-14] MEDS: APIXABAN 5 MG TABLET 10 MG PO (22:39)
[2024-04-14 22:40] VITALS: BP 129/82; PULSE 88; RESP 16; TEMP 36.7; O2SAT 97
== END 2024-04-14 22:44 | disposition home or self-care (01) ==
PROVIDERS: Emergency Provider Emergency Medicine; PCP Family Medicine; Visit Provider Emergency Medicine
DX: L03.314 Cellulitis of groin (principal); I82.409 Acute embolism and thrombosis of unspecified deep veins of unspecified lower extremity; K57.32 Diverticulitis of large intestine without perforation or abscess without bleeding; I10 Essential (primary) hypertension; F17.200 Nicotine dependence, unspecified, uncomplicated; Z79.899 Other long term (current) drug therapy; Z79.01 Long term (current) use of anticoagulants
CPT/HCPCS: 74177; 80048; 81001; 83605; 85025; 85610; 85730; 87040; 96374; 96376; 99283; Q9967; A4216